=== PATIENT | male | born 1965 | race Caucasian/White ===

== ENCOUNTER 2019-03-07 03:34 | Inpatient (IN) | payer BC, OTHER ==
--- NOTE | 2019-03-07 04:16 | PDOC ---
History of Present Illness - General Stated Complaint: ABD PAIN - History of Present Illness Initial Comments: Nikhil Casas is a 54yo man with a PMH of pancreatitis, former alcohol abuse , current smoking (1/2 PPD from 2 PPD previously) who presents with over one month of productive cough, 6 months of intermittent left-sided abdominal pain, and chronic diarrhea. He reports that he has also lost about 50lb over the past 6 months. Mr Casas states that he has had intermittent abdominal pain since he was diagnosed with pancreatitis several years ago; he has always attributed the pain to pancreatitis. He says that the pain is usually in the mid left abdomen, and it is most severe at the end of the day, especially if he is doing physical work. Overnight, the pain was so severe that he was "doubled over" and his convinced him to come for evaluation. The pain has since resolved, but he states that it always comes and goes. In addition, he notes watery diarrhea with an oily surface that he has had freqnetly over the past 6 months. During the same time period, he has lost a significant amount of weight despite increasing his PO intake significantly. He reports that he has been trying to gain weight but continues to loose more. Finally, he has had a cough for the past month along with nasal congestion. He has cut down markedly on his smoking, but he does continue to smoke. He has never had a similar cough in the past, and he has never seen a hook puller. He does not currently have a PMD and has not had a medical evaluation in several years. He denies any fever/chills, nausea/vomiting, night sweats, recent travel, sick contacts, exposure to prisons or homeless shelters, or other exposures. Past History - Past Medical History Allergies/Adverse Reactions: Allergies Allergy/AdvReac Type Severity Reaction Status Date / Time neomycin Allergy Verified 03/29/14 15:14 Home Medications: Ambulatory Orders Bupropion HCl [Zyban] 150 mg PO DAILY 03/29/14 Thiamine HCl [Vitamin B-1] 100 mg PO DAILY 03/29/14 Asthma: Yes COPD: No - Immunization History Immunization Up to Date: Yes - Psycho Social/Smoking Cessation Hx Smoking History: Current every day smoker Have you smoked in the past 12 months: Yes Number of Cigarettes Smoked Daily: 10 Information on smoking cessation initiated: Yes Hx Alcohol Use: Yes (1L/ day ) Drug/Substance Use Hx: No Substance Use Type: None Hx Substance Use Treatment: No Review of Systems - Review of Systems Comments:: General: No fevers, no chills, +rapid weight loss, no malaise HEENT: No changes in vision, no changes in hearing, no congestion, no sore throat CV: No chest pain, no palpitations, no LE edema Pulm: No SOB, + cough, no wheezing GI: No nausea or vomiting, +frequent watery diarrhea, +left-sided abdominal pain : No frequency, no urgency, no dysuria Musc: No back pain, no joint swelling, no recent injury Skin: No rash, no lesions, no erythema Endo: No excessive thirst, no heat/cold intolerance Heme: No unusual bruising or bleeding, no swollen glands Neuro: No syncope, no numbness/tingling, no focal weakness Vasc: No claudication Psych: No recent change in mood, no SI or HI *Physical Exam - Vital Signs Last Vital Signs Temp Pulse Resp BP Pulse Ox 98 F 103 H 18 126/68 98 03/07/19 03:55 03/07/19 03:55 03/07/19 03:55 03/07/19 03:55 03/07/19 03:55 - Physical Exam General: Comfortable, no acute distress. Very thin, clothing oversized HEENT: Atraumatic, PERRL, EOMI, MMM, voice normal, normal neck ROM Cards: RRR, no murmur appreciated Pulm: Comfortable on room air, clear to auscultation bilaterally. Frequent dry cough Abd: Soft, nontender, nondistended. Rt inguinal hernia, easily reducible Ext: Atraumatic. No LE edema. ROM intact. WWP Skin: Normal color, no rashes or lesions Neuro: A&Ox3, CN grossly intact, normal speech, motor/sensory grossly intact and symmetric Psych: Mood appropriate to situation ED Treatment Course - LABORATORY CBC & Chemistry Diagram: 03/07/19 04:50 03/07/19 04:50 Medical Decision Making - Medical Decision Making 03/07/19 04:16 Nikhil Casas is a 54yo man with a PMH of pancreatitis, former alcohol abuse , current smoking (1/2 PPD from 2 PPD previously) who presents with over one month of productive cough, 6 months of intermittent left-sided abdominal pain, and chronic oily diarrhea. He also reports loss of 50lb over the past 6 months despite trying to gain weight. He has not had fevers, night sweats, recent travel, sick contacts, or concerning exposures. - Concerning for underlying chronic pulmonary or abdominal disease, possibly lung or pancreatic cancer, causing multiple symptoms, weight loss, pain, cough. - CBC, CMP, lipase, lactate, UA, UCx - CXR, may need CT chest - CT abd/pelvis with PO and IV contrast for evaluation 03/07/19 06:52 - Labs notable for glucose 669, lactate 2.8. 10u insulin and IVF ordered. Also notable for alk phos elevated to 238, mild hyponatremia at 130 - UA with 3+ glucose - CXR without focal abnormalities - CT abd/pelvis with IV and oral contrast ordered for evaluation 03/07/19 07:37 - Patient signed out to Dr Gracia for the remainder of his ED care. Discussed with Dr Ami Franks PGY2 Discharge - Discharge Information Problems reviewed: Yes Clinical Impression/Diagnosis: Weight loss, unintentional, Chronic cough Chronic pancreatitis Qualifiers: Pancreatitis type: other Qualified Code(s): K86.1 - Other chronic pancreatitis - Follow up/Referral - Patient Discharge Instructions - Post Discharge Activity
--- NOTE | 2019-03-07 04:56 | PDOC ---
Attending Attestation - Resident Resident Name: Keren Franks - ED Attending Attestation I have performed the following: I have examined & evaluated the patient, The case was reviewed & discussed with the resident, I agree w/resident's findings & plan - HPI HPI: 03/07/19 07:20 Nikhil Casas is a 54yo man with a PMH of pancreatitis, former alcohol abuse , current smoking (1/2 PPD from 2 PPD previously) who presents with over one month of productive cough, 6 months of intermittent left-sided abdominal pain, associated with almost 50lb weight loss during this time. - Physicial Exam PE: 03/07/19 04:51 Agree with the resident's HPI and PE as documented in the electronic medical record. cachectic appearing, very thin, yazidism wasting. NCAT. EOMI, PERRL, nl conjunctiva, anicteric; neck supple. lungs clear, RRR, abdomen soft + lower quadrant tenderness, worse in RLQ>LLQ. no rebound, guarding. Back nontender. DALE x4, no focal neuro deficits. No peripheral edema. normal color for ethnicity , WWP. 03/07/19 07:20 - Medical Decision Making 03/07/19 04:53 Vital Signs Temp Pulse Resp BP Pulse Ox 98 F 103 H 18 126/68 98 03/07/19 03:55 03/07/19 03:55 03/07/19 03:55 03/07/19 03:55 03/07/19 03:55 ddx, malignancy, anemia, infection, pancreatitis, hepatitis, renal colic, cholecystitis, biliary colic, mass vitals with mild tachy likely from dehydration/pain. basic labs and lytes hyperglycemia noted 660s, pt does not have documented diabetic, has not seen PMD will treat with IVF and insulin recheck bgm. no e/o dka, no anion gap, so doubt acidotic. no ketones on urinalysis lactic elevated, likely from poor nutrition/weight loss. trop neg, reassuring; doubt cardiac, CT a/p to eval for mass/obstruction, inflammation/infection possible malignancy with significant weight loss and cough, no primary care, now with abdominal pain. s/o pending CT imaging, ultimate dispo, reeval s/o dr carrillo at 7AM 03/07/19 07:21 Heart Score/ECG Review #1 ECG reviewed & interpreted by me at: 04:35 General ECG Interpretation: Sinus Rhythm, Normal Rate, Normal Intervals 03/07/19 04:54 EKG normal sinus rhythm 91 bpm, no interval abnormalities, narrow QRS, ST and T wave segments and morphology normal.
[2019-03-07 05:09] LABS: BASO % 0.7 % (0-2.0); EOS % 0.6 % (0-4.5); HEMATOCRIT 36.8 % (35.4-49); HEMOGLOBIN 12.8 GM/dL (11.7-16.9); LYMPH % 27.2 % (8-40); MCH 34.6 pg (25.7-33.7); MCHC 34.8 g/dl (32.0-35.9); MEAN CELL VOLUME 99.3 fl (80-96); MEAN PLT VOLUME 7.3 fl (7.5-11.1); MONO % 8.7 % (3.8-10.2); NEUT % 62.8 % (42.8-82.8); PLATELET COUNT 207 K/MM3 (134-434); RDW 13.3 % (11.9-15.9); WHITE BLOOD COUNT 6.1 K/mm3 (4.0-10.0)
[2019-03-07 05:15] LABS: PH,URINE 5.5 (5.0-8.0); URINE APPEARANCE CLEAR; URINE BILIRUBIN NEGATIVE (NEGATIVE); URINE COLOR YELLOW; URINE GLUCOSE (UA) 3+ (NEGATIVE); URINE KETONE NEGATIVE (NEGATIVE); URINE LEUK ESTERASE NEGATIVE (NEGATIVE); URINE NITRITE NEGATIVE (NEGATIVE); URINE PROTEIN NEGATIVE (NEGATIVE); URINE UROBILINOGEN 0.2 mg/dL (0.2-1.0)
[2019-03-07 05:47] LABS: ALBUMIN 3.3 g/dl (3.4-5.0); BILIRUBIN,TOTAL 0.5 mg/dL (0.2-1); BLOOD UREA NITROGEN 19.6 mg/dL (7-18); CALCIUM 8.6 mg/dL (8.5-10.1); POTASSIUM 3.8 mmol/L (3.5-5.1); TOT PROT 6.6 g/dl (6.4-8.2)
[2019-03-07] MEDS ORDERED: INSULIN REGULAR HUMAN 100 UNITS/ML *VIAL SQ ONE (05:50)
[2019-03-07] MEDS ORDERED: SODIUM CHLORIDE 1,000 ML IV STA (05:51)
[2019-03-07] MEDS ORDERED: INSULIN REGULAR HUMAN 100 UNITS/ML *VIAL ONE ×2 (07:17→08:50)
--- NOTE | 2019-03-07 07:17 | PDOC ---
*Physical Exam - Vital Signs Last Vital Signs Temp Pulse Resp BP Pulse Ox 98 F 103 H 18 126/68 98 03/07/19 03:55 03/07/19 03:55 03/07/19 03:55 03/07/19 03:55 03/07/19 03:55 ED Treatment Course - LABORATORY CBC & Chemistry Diagram: 03/07/19 04:50 03/07/19 04:50 - ADDITIONAL ORDERS Additional order review: Laboratory Results 03/07/19 03/07/19 03/07/19 04:50 04:50 04:50 Sodium Potassium Chloride Carbon Dioxide Anion Gap BUN Creatinine Est GFR (CKD-EPI)AfAm Est GFR (CKD-EPI)NonAf Random Glucose Lactic Acid Calcium Magnesium 1.8 Total Bilirubin AST ALT Alkaline Phosphatase Creatine Kinase 79 Troponin I < 0.02 Total Protein Albumin Lipase Urine Color Yellow Urine Appearance Clear Urine pH 5.5 Ur Specific [place] 1.034 Urine Protein Negative Urine Glucose (UA) 3+ H Urine Ketones Negative Urine Blood Negative Urine Nitrite Negative Urine Bilirubin Negative Urine Urobilinogen 0.2 Ur Leukocyte Esterase Negative 03/07/19 03/07/19 03/07/19 04:50 04:50 04:50 Sodium 130 L Potassium 3.8 Chloride 95 L Carbon Dioxide 22 Anion Gap 13 BUN 19.6 H Creatinine 1.0 Est GFR (CKD-EPI)AfAm 99.85 Est GFR (CKD-EPI)NonAf 86.15 Random Glucose 669 H* Lactic Acid 2.8 H* Calcium 8.6 Magnesium Total Bilirubin 0.5 AST 38 H ALT 56 Alkaline Phosphatase 238 H Creatine Kinase Troponin I Total Protein 6.6 Albumin 3.3 L Lipase 53 L Urine Color Urine Appearance Urine pH Ur Specific [place] Urine Protein Urine Glucose (UA) Urine Ketones Urine Blood Urine Nitrite Urine Bilirubin Urine Urobilinogen Ur Leukocyte Esterase 03/07/19 04:50 RBC 3.70 L MCV 99.3 H MCHC 34.8 RDW 13.3 MPV 7.3 L D Neutrophils % 62.8 Lymphocytes % 27.2 Monocytes % 8.7 Eosinophils % 0.6 Basophils % 0.7 Medical Decision Making - Medical Decision Making Patient signed out by Dr. Franks 54yo man with a PMH of pancreatitis, former alcohol abuse, current smoking (1/2 PPD from 2 PPD previously) who presents with over one month of productive cough , 6 months of intermittent left-sided abdominal pain, and significant weight loss. Glc 669 Lactate 2.8 Pending CTAP with IV and po contrast 03/07/19 07:16 CTAP as read by radiology: " EXAM#: TYPE/EXAM: RESULT: [id number] CT/ABDOMEN PELVIS CT WITH CONTR Abdomen and pelvis CT with intravenous and oral contrast Clinical information: chronic abdominal pain, history of pancreatitis multiplanar imaging was performed utilizing intravenous and oral contrast. Standard portal venous phase imaging was obtained. No evidence of pneumoperitoneum, abscess, free intraperitoneal fluid or bowel obstruction. In comparison to a prior CT exam of 03/29/2014 note is made of increased multiple pancreatic calcifications diffusely consistent with chronic calcific pancreatitis. Diffuse pancreatic atrophy is again noted. Interval development of dilatation of the main pancreatic duct is seen within the body and tail with a 0.8 cm diameter. There are probable intraductal calculi may which account for the described ductal dilatation. Interval resolution of minimal to mild peripancreatic soft tissue stranding is seen adjacent to the tail which may be on the basis of superimposed acute pancreatitis at that time. Note is also made of interval resolution of a 6.2 cm pancreatic tail pseudocyst. No gross pancreatic mass lesion is identified. Interval resolution of a short segment wall dilatation is noted which had involved several proximal jejunal bowel loops. Diffuse fatty infiltration of liver is seen which appears improved. There is no longer visualization of a 3 mm nonobstructing left renal calculus which may be on the basis of interval passage. Correlate with medical history. There is no definite CT evidence of current urolithiasis. Interval decreased intra-abdominal and subcutaneous fat is noted diffusely. There is currently a marked paucity of intra-abdominal and subcutaneous fat. The spleen, gallbladder, adrenal glands and kidneys demonstrate no discrete pathology. There is no aortic aneurysm. No obvious lymphadenopathy is seen. At least moderate atherosclerotic aortoiliac wall calcifications are noted. The appendix is not definitely visualized. No obvious indirect CT signs of acute appendicitis are noted. Evaluation this regard is limited due to a paucity of abdominal fat and contiguous bowel loops. There is no definite CT evidence of acute diverticulitis. No gross small bowel pathology is identified. Diffuse colonic fecal retention is noted which is probably moderate to marked. Mild prostate enlargement. The urinary bladder demonstrates no obvious intrinsic or extrinsic CT abnormality. Moderate to marked left L5-S1 degenerative facet arthropathy. IMPRESSION: No definite CT findings of acute pathology are identified. Chronic calcific pancreatitis is noted. The degree of pancreatic calcification has increased in comparison to a CT exam of 03/29/2014. Interval development of dilatation of the main pancreatic duct is seen within the body and tail with a 0.8 cm diameter. There is no obvious CT evidence of superimposed acute pancreatitis. Evaluation in this regard is somewhat limited due to a paucity of retroperitoneal fat. Interval resolution of a 6.2 cm pancreatic tail pseudocyst is noted. There is no longer visualization of a 3 mm nonobstructing left renal calculus which may be due to interval passage. Currently there is a marked paucity of intra-abdominal and subcutaneous fat which has developed since the previous study. Diffuse hepatic steatosis is seen which has decreased since the previous exam. At least moderate atherosclerotic vascular calcifications are seen. Diffuse colonic fecal retention is noted which is probably moderate to marked. Reported By: Bryson Cuevas MD 03/07/19 0905 " 03/07/19 09:[address] Orantes who accepted patient for med/surg admission under himself 03/07/19 10:00 Discharge - Discharge Information Problems reviewed: Yes Clinical Impression/Diagnosis: Weight loss, unintentional, Chronic cough, Pancreatic duct dilated, Hyperglycemia Chronic pancreatitis Qualifiers: Pancreatitis type: other Qualified Code(s): K86.1 - Other chronic pancreatitis Condition: Guarded - Admission Yes - Follow up/Referral - Patient Discharge Instructions - Post Discharge Activity
[2019-03-07] MEDS ORDERED: INSULIN REGULAR HUMAN 100 UNITS/ML *VIAL IVPUSH ONE (08:48)
[2019-03-07] MEDS: SODIUM CHLORIDE 1,000 ML IV SCH ×2 (10:32→22:29)
--- NOTE | 2019-03-07 10:53 | HP ---
CHIEF COMPLAINT: Weight loss and high sugar PCP: He has not seen a doctor over 10 years HISTORY OF PRESENT ILLNESS: Nikhil Casas is a 54yo man with a PMH of pancreatitis, former alcohol abuse , current smoking (1/2 PPD from 2 PPD previously) who presents with over one month of productive cough, 6 months of intermittent left-sided abdominal pain, and chronic oily diarrhea. He also reports loss of 50lb over the past 6 months despite trying to gain weight. He has not had fevers, night sweats, recent travel, sick contacts, or concerning exposures. In the ER he was found to have sugar of over 600 and he does not know about it. He has been complaining of polyuria polydipsia he is eating a lot of fluids and food but still unable to gain any weight rather he is losing weight. It is going on for last few months. He has a history of chronic alcoholism and history of pancreatitis in the past but he is okay right now he is not drinking anymore. No nausea vomiting or anything else. In the emergency room his sugar was 650 he was given IV fluids and insulin IV and sugar has come down to 400. He is still very thirsty but not any fever or chills. ER course was notable for: (1) weight loss over 50 pounds (2) history of alcoholism (3) history of chronic smoking Recent Travel: No history of traveling PAST MEDICAL HISTORY: History of chronic alcohol abuse also history of positive PPD and history of pancreatitis in the past PAST SURGICAL HISTORY: Social History: Smoking: Smoker Alcohol: Former alcoholic Drugs: No history of drug use Allergies neomycin Allergy (Verified 03/29/14 15:14) HOME MEDICATIONS: Home Medications Medication Instructions Recorded Bupropion HCl [Zyban] 150 mg PO DAILY 03/29/14 Thiamine HCl [Vitamin B-1] 100 mg PO DAILY 03/29/14 REVIEW OF SYSTEMS CONSTITUTIONAL: Absent: fever, chills, diaphoresis, generalized weakness, malaise, loss of appetite, positive weight loss HEENT: Absent: rhinorrhea, nasal congestion, throat pain, throat swelling, difficulty swallowing, mouth swelling, ear pain, eye pain, visual changes CARDIOVASCULAR: Absent: chest pain, syncope, palpitations, irregular heart rate, lightheadedness , peripheral edema RESPIRATORY: Absent: cough, shortness of breath, dyspnea with exertion, orthopnea, wheezing, stridor, hemoptysis GASTROINTESTINAL: Absent: abdominal pain, abdominal distension, nausea, vomiting, diarrhea, constipation, melena, hematochezia GENITOURINARY: Absent: dysuria, frequency, urgency, hesitancy, hematuria, flank pain, genital pain MUSCULOSKELETAL: Absent: myalgia, arthralgia, joint swelling, back pain, neck pain SKIN: Absent: rash, itching, pallor HEMATOLOGIC/IMMUNOLOGIC: Absent: easy bleeding, easy bruising, lymphadenopathy, frequent infections ENDOCRINE: Absent: unexplained weight gain, unexplained weight loss, heat intolerance, cold intolerance NEUROLOGIC: Absent: headache, focal weakness or paresthesias, dizziness, unsteady gait, seizure, mental status changes, bladder or bowel incontinence PSYCHIATRIC: Absent: anxiety, depression, suicidal or homicidal ideation, hallucinations. PHYSICAL EXAMINATION Vital Signs - 24 hr 03/07/19 03/07/19 03/07/19 03:55 07:32 07:33 Temperature 98 F 98.4 F Pulse Rate 103 H Pulse Rate [ 94 H Apical] Respiratory 18 18 Rate Blood Pressure 126/68 Blood Pressure 115/69 [Right Arm] O2 Sat by Pulse 98 100 100 Oximetry (%) GENERAL: Awake, alert, and fully oriented, in no acute distress. HEAD: Normal with no signs of trauma. EYES: Pupils equal, round and reactive to light, extraocular movements intact, sclera anicteric, conjunctiva clear. No lid lag. EARS, NOSE, THROAT: Ears normal, nares patent, oropharynx clear without exudates. Moist mucous membranes. NECK: Normal range of motion, supple without lymphadenopathy, JVD, or masses. LUNGS: Breath sounds equal, clear to auscultation bilaterally. No wheezes, and no crackles. No accessory muscle use. HEART: Regular rate and rhythm, normal S1 and S2 without murmur, rub or gallop. ABDOMEN: Soft, nontender, not distended, normoactive bowel sounds, no guarding, no rebound, no masses. No hepatomegaly or splenomegaly. MUSCULOSKELETAL: Normal range of motion at all joints. No bony deformities or tenderness. No CVA tenderness. UPPER EXTREMITIES: 2+ pulses, warm, well-perfused. No cyanosis. No clubbing. No peripheral edema. LOWER EXTREMITIES: 2+ pulses, warm, well-perfused. No calf tenderness. No peripheral edema. NEUROLOGICAL: Cranial nerves II-XII intact. Normal speech. Normal gait. PSYCHIATRIC: Cooperative. Good eye contact. Appropriate mood and affect. SKIN: Warm, dry, normal turgor, no rashes or lesions noted, normal capillary refill. Laboratory Results - last 24 hr 03/07/19 03/07/19 03/07/19 04:50 04:50 04:50 WBC 6.1 RBC 3.70 L Hgb 12.8 Hct 36.8 D MCV 99.3 H MCH 34.6 H D MCHC 34.8 RDW 13.3 Plt Count 207 D MPV 7.3 L D Absolute Neuts (auto) 3.8 Neutrophils % 62.8 Lymphocytes % 27.2 Monocytes % 8.7 Eosinophils % 0.6 Basophils % 0.7 Nucleated RBC % 0 Sodium 130 L Potassium 3.8 Chloride 95 L Carbon Dioxide 22 Anion Gap 13 BUN 19.6 H Creatinine 1.0 Est GFR (CKD-EPI)AfAm 99.85 Est GFR (CKD-EPI)NonAf 86.15 POC Glucometer Random Glucose 669 H* Lactic Acid 2.8 H* Calcium 8.6 Magnesium Total Bilirubin 0.5 AST 38 H ALT 56 Alkaline Phosphatase 238 H Creatine Kinase Troponin I Total Protein 6.6 Albumin 3.3 L Lipase Urine Color Urine Appearance Urine pH Ur Specific [place] Urine Protein Urine Glucose (UA) Urine Ketones Urine Blood Urine Nitrite Urine Bilirubin Urine Urobilinogen Ur Leukocyte Esterase 03/07/19 03/07/19 03/07/19 04:50 04:50 04:50 WBC RBC Hgb Hct MCV MCH MCHC RDW Plt Count MPV Absolute Neuts (auto) Neutrophils % Lymphocytes % Monocytes % Eosinophils % Basophils % Nucleated RBC % Sodium Potassium Chloride Carbon Dioxide Anion Gap BUN Creatinine Est GFR (CKD-EPI)AfAm Est GFR (CKD-EPI)NonAf POC Glucometer Random Glucose Lactic Acid Calcium Magnesium 1.8 Total Bilirubin AST ALT Alkaline Phosphatase Creatine Kinase Troponin I Total Protein Albumin Lipase 53 L Urine Color Yellow Urine Appearance Clear Urine pH 5.5 Ur Specific [place] 1.034 Urine Protein Negative Urine Glucose (UA) 3+ H Urine Ketones Negative Urine Blood Negative Urine Nitrite Negative Urine Bilirubin Negative Urine Urobilinogen 0.2 Ur Leukocyte Esterase Negative 03/07/19 03/07/19 04:50 08:45 WBC RBC Hgb Hct MCV MCH MCHC RDW Plt Count MPV Absolute Neuts (auto) Neutrophils % Lymphocytes % Monocytes % Eosinophils % Basophils % Nucleated RBC % Sodium Potassium Chloride Carbon Dioxide Anion Gap BUN Creatinine Est GFR (CKD-EPI)AfAm Est GFR (CKD-EPI)NonAf POC Glucometer 405 Random Glucose Lactic Acid Calcium Magnesium Total Bilirubin AST ALT Alkaline Phosphatase Creatine Kinase 79 Troponin I < 0.02 Total Protein Albumin Lipase Urine Color Urine Appearance Urine pH Ur Specific [place] Urine Protein Urine Glucose (UA) Urine Ketones Urine Blood Urine Nitrite Urine Bilirubin Urine Urobilinogen Ur Leukocyte Esterase ASSESSMENT/PLAN: Nikhil Casas is a 54yo man with a PMH of pancreatitis, former alcohol abuse , current smoking (1/2 PPD from 2 PPD previously) who presents with over one month of productive cough, 6 months of intermittent left-sided abdominal pain, and chronic oily diarrhea. He also reports loss of 50lb over the past 6 months despite trying to gain weight. He has not had fevers, night sweats, recent travel, sick contacts, or concerning exposures. Problem 1 is weight loss probably due to hyperglycemia uncontrolled diabetes. Start IV fluid normal saline at 200 cc an hour start him on insulin coverage every 4 hourly Start him on diabetic diet Discussed in detail about the diabetes disease process explained to him diet low sugar also requested dietary evaluation in the hospital. Problem #2 weight loss rule out problem due to pancreatic issue Patient had a CAT scan done in the hospital with IV and p.o. contrast which showed no sign of any tumor or pancreatic mass but just dilated bile duct of 0.8 cm. No pancreatic mass or any other GI abnormality noted. Will order abdominal ultrasound because his alkaline phosphatase is 250. He has no sign of infection at this time so no need for antibiotic Patient is ambulatory so there is no need for any injectable form of DVT prophylaxis. Problem List - Problem (1) Chronic pancreatitis Code(s): K86.1 - OTHER CHRONIC PANCREATITIS Qualifiers: Pancreatitis type: other Qualified Code(s): K86.1 - Other chronic pancreatitis (2) Hyperglycemia Code(s): R73.9 - HYPERGLYCEMIA, UNSPECIFIED (3) Pancreatic duct dilated Code(s): K86.89 - OTHER SPECIFIED DISEASES OF PANCREAS (4) Weight loss, unintentional Code(s): R63.4 - ABNORMAL WEIGHT LOSS (5) Chronic alcoholism Code(s): F10.20 - ALCOHOL DEPENDENCE, UNCOMPLICATED
[2019-03-07] MEDS: INSULIN SLIDING SCALE (NOVOLOG) 1 VIAL SQ SCH ×3 (11:25→21:15)
[2019-03-07] MEDS ORDERED: PNEUMOC 13-VAL CONJ-DIP CRM/PF 0.5 ML DISP.SYRIN IM ONE (12:07)
[2019-03-07] MEDS ORDERED: PNEUMOCOCCAL 23 VACCINE 0.5 ML VIAL IM ONE (17:00)
[2019-03-07] MEDS ORDERED: FLU VACCINE QUAD 60 MCG/0.5 ML (MDV 19-20) IM ONE (17:00)
--- NOTE | 2019-03-07 17:33 | EKG ---
Test Reason : Blood Pressure : / mmHG Vent. Rate : 091 BPM Atrial Rate : 091 BPM P-R Int : 142 ms QRS Dur : 090 ms QT Int : 364 ms P-R-T Axes : 072 072 066 degrees QTc Int : 447 ms NORMAL SINUS RHYTHM NORMAL ECG WHEN COMPARED WITH ECG OF 29-MAR-2014 05:51, NONSPECIFIC T WAVE ABNORMALITY NO LONGER EVIDENT IN INFERIOR LEADS NONSPECIFIC T WAVE ABNORMALITY NO LONGER EVIDENT IN ANTEROLATERAL LEADS CLINICAL CORRELATION IS RECOMMENDED Confirmed by ONESIMO FERNANDEZ MD ([id number]) on 03/07/2019 5:33:29 PM Referred By: Confirmed By:ONESIMO FERNANDEZ MD
--- NOTE | 2019-03-07 17:49 | CON.GI ---
Consult Consult Specialty:: GI Referred by:: Hospitalist Service Reason for Consultation:: Pancreatitis - History of Present Illness Chief Complaint: Chest pain and abdominal pain History of Present Illness: 54M admitted for evaluation of chest pain and abdominal pain. The abdominal pain started 1 week ago and was intermittent. His abdominal pain has resolved and he apparently tolerated breakfast and lunch without postprandial pain. He is an alcoholic. He states that he quit drinking, however, had a few drinks last night. Prior to that he states that he drank on Srikanth. He denies vomiting, diarrhea, rectal bleeding. He has no medical care. His blood glucose on admission was 669. He does not carry a diagnosis of diabetes. He is an active smoker and has been smoking 1 PPD since age 16. He describes significant weight loss over the last few months. There is no family history of colorectal cancer or other GI malignancy. He has never had a colonoscopy or upper endoscopy. CT scan on admission reveals chronic calcific pancreatitis with dilated pancreatic duct to 8mm. Transaminases and ALP were elevated on admission. It appears as though ALP was elevated in 2014 as well. hepatitis serologies were unrevealing at that time aside from a + hepatitis A IgG. there is no family or personal history of liver disease. - History Source History Provided By: Patient, Medical Record - Past Medical History Gastrointestinal: Yes: Pancreatitis (chronic calcific pancreatitis) Psych: Yes: Addictions (Alcoholism) - Past Surgical History Additional Surgical History: Denies - Alcohol/Substance Use Hx Alcohol Use: Yes (previously 1L/ day, now drinks intermittently per patient ) History of Substance Use: reports: Cocaine (as a teen), Marijuana (as a teen) - Smoking History Smoking history: Current every day smoker (1 PPD) Have you smoked in the past 12 months: Yes Aproximately how many cigarettes per day: 20 - Social History Usual Living Arrangement: With Spouse ADL: Independent Occupation: [employer] Place of : [facility] History of Recent Travel: No Home Medications - Allergies Allergies/Adverse Reactions: Allergies Allergy/AdvReac Type Severity Reaction Status Date / Time neomycin Allergy Verified 03/29/14 15:14 - Home Medications Home Medications: Ambulatory Orders Bupropion HCl [Zyban] 150 mg PO DAILY 03/29/14 Thiamine HCl [Vitamin B-1] 100 mg PO DAILY 03/29/14 Family Medical History Family Hx Cancer: Mother ("skin cancer") Other Family History: Father: alive: healthy. 6 12 siblings: healthy. 1 son: healthy. No family history of colorectal cancer or other GI malignancy Review of Systems - Review of Systems Cardiovascular: reports: Chest Pain Respiratory: reports: Cough Gastrointestinal: reports: Abdominal Pain (resolved), Nausea. denies: Bloating , Diarrhea, Rectal Bleeding Physical Exam-GI Vital Signs: Vital Signs Temperature 98.6 F 03/07/19 17:17 Pulse Rate 66 03/07/19 17:17 Respiratory Rate 18 03/07/19 17:17 Blood Pressure 142/85 03/07/19 17:17 O2 Sat by Pulse Oximetry (%) 97 03/07/19 14:44 Constitutional: Yes: Calm Eyes: No: Sclera Icterus Cardiovascular: Yes: Regular Rate and Rhythm. No: Murmur Respiratory: Yes: CTA Bilaterally Gastrointestinal Inspection: No: Distention ...Auscultate: Yes: Normoactive Bowel Sounds ...Palpate: Yes: Soft. No: Hepatomegaly, Splenomegaly, Tenderness ...Percussion: No: Tympanitic Edema: No (No LE edema) Neurological: Yes: Alert Labs: CBC, BMP 03/07/19 04:50 03/07/19 04:50 Hepatic Panel Total Bilirubin 0.5 mg/dL (0.2-1) 03/07/19 04:50 AST 38 U/L (15-37) H 03/07/19 04:50 ALT 56 U/L (13-61) 03/07/19 04:50 Alkaline Phosphatase 238 U/L (45-117) H 03/07/19 04:50 Albumin 3.3 g/dl (3.4-5.0) L 03/07/19 04:50 Problem List - Problems (1) Chronic pancreatitis Assessment/Plan: Chronic calcific pancreatitis in sertting of continued ETOH use (despite his description of intermittent alcohol use, he is still drinking) and + tobacco use. Tolerating meals without pancreatic enzyme supplementation advise: Glycemic control. Uncontrolled and undiagnosed DM II likely contributing to his weight loss. Complete alcohol cessation and smoking cessation. explained that both are causative of his pancreatic disease If post prandial pain with meals, begin pancrealipase 2 pills prior to meals and protonix 40mg once daily Lung cancer screening per PMD Ordered MRI of the abdomen with and without contrast with MRCP Screening hepatitis serologies ordered Follow-up with a pancreaticobiliary specialist for follow-up of his chronic calcific pancreatitis ([facility], Dr. Michael Banegas [phone]) Can follow-up in office to discuss screening colonoscopy Code(s): K86.1 - OTHER CHRONIC PANCREATITIS Qualifiers: Pancreatitis type: other Qualified Code(s): K86.1 - Other chronic pancreatitis
[2019-03-07] MEDS ORDERED: PT OWN MED DRAWER 7, Y5N ONE (18:58)
[2019-03-07] MEDS: NICOTINE 21 MG/24 HOURS TOPICAL PATCH TD SCH (19:00)
[2019-03-07 19:30] LABS: BLOOD UREA NITROGEN 13.2 mg/dL (7-18); CALCIUM 8.5 mg/dL (8.5-10.1); CREATININE 0.8 mg/dL (0.55-1.3); POTASSIUM 3.4 mmol/L (3.5-5.1)
[2019-03-08] MEDS: INSULIN SLIDING SCALE (NOVOLOG) 1 VIAL SQ SCH ×4 (07:34→21:32)
[2019-03-08 07:55] LABS: BASO % 0.4 % (0-2.0); EOS % 1.3 % (0-4.5); HEMATOCRIT 32.5 % (35.4-49); HEMOGLOBIN 11.8 GM/dL (11.7-16.9); LYMPH % 10.4 % (8-40); MCH 35.1 pg (25.7-33.7); MCHC 36.2 g/dl (32.0-35.9); MEAN PLT VOLUME 6.9 fl (7.5-11.1); NEUT % 79.9 % (42.8-82.8); PLATELET COUNT 174 K/MM3 (134-434); RBC 3.36 M/mm3 (4.00-5.60); RDW 13.4 % (11.9-15.9); WHITE BLOOD COUNT 5.7 K/mm3 (4.0-10.0)
[2019-03-08 08:40] LABS: BLOOD UREA NITROGEN 10.7 mg/dL (7-18); CALCIUM 8.2 mg/dL (8.5-10.1); CREATININE 0.6 mg/dL (0.55-1.3); POTASSIUM 3.4 mmol/L (3.5-5.1)
[2019-03-08] MEDS: NICOTINE 21 MG/24 HOURS TOPICAL PATCH TD SCH (09:05)
[2019-03-08] MEDS ORDERED: POTASSIUM CHLORIDE TABS 20 MEQ TABLET.ER (FP) PO ONE (09:15)
[2019-03-08] MEDS ORDERED: diazePAM 5 MG TABLET PO ONE (10:15)
[2019-03-08] MEDS: SODIUM CHLORIDE 1,000 ML IV SCH ×2 (10:21→20:17)
[2019-03-08 11:07] VITALS: BMI 17.0
--- NOTE | 2019-03-08 14:06 | PN ---
Teaching Attending Note Name of Resident: Philly Acevedo ATTENDING PHYSICIAN STATEMENT I saw and evaluated the patient. I reviewed the resident's note and discussed the case with the resident. I agree with the resident's findings and plan as documented. SUBJECTIVE: Feels improved able to tolerate p.o. OBJECTIVE: Vital Signs Temperature 98.3 F 03/08/19 10:00 Pulse Rate 81 03/08/19 10:00 Respiratory Rate 20 03/08/19 10:00 Blood Pressure 125/83 03/08/19 10:00 O2 Sat by Pulse Oximetry (%) 97 03/07/19 14:44 General: Young male, comfortable, not in distress HEENT; mucous membranes moist, no anemia, no jaundice, PERRLA, no nystagmus Neck: No JVD, supple, no bruit, thyroid palpably normal, normal carotid pulsations. Chest: Nontender, clear to auscultation CVS: S1-S2 regular no murmur/gallop/rub Abdomen: Nondistended, soft, bowel sounds present. Extremities: No edema., No cough tenderness, pulses present FINAL OPERATIONS TECHNICIAN: AO X3 , no gross motor sensory deficit CBC, BMP 03/08/19 07:10 03/08/19 07:10 Active Medications Sodium Chloride (Normal Saline -) 1,000 mls @ 200 mls/hr IV ASDIR [facility] Last Admin: 03/08/19 10:21 Dose: 200 mls/hr Insulin Aspart (Novolog Vial Sliding Scale -) 1 vial SQ ACHS [facility]; Protocol Last Admin: 03/08/19 10:46 Dose: 6 units Insulin Detemir (Levemir Vial) 6 units SQ HS [facility] Nicotine (Nicoderm Patch -) 21 mg TD DAILY [facility] Last Admin: 03/08/19 09:05 Dose: 21 mg ASSESSMENT AND PLAN: 54 years old man history of alcohol abuse, presented with new onset diabetes mellitus with unintentional weight loss and chronic diarrhea , CT abdomen shows pancreatic duct dilatation and pancreatic atrophy suggestive of chronic pancreatic insufficiency. 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 Problem List - Problems (1) Weight loss, unintentional Assessment/Plan: Most likely due to pancreatic insufficiency both endocrine and exocrine with new onset diabetes, glycemic control will increase basal insulin to 10 units with correction dose NovoLog, and exocrine pancreatic replacement, follow-up with fecal fat. Problems reviewed: Yes Code(s): R63.4 - ABNORMAL WEIGHT LOSS (2) New onset type 2 diabetes mellitus Assessment/Plan: Hyperglycemia is improving continue basal bolus Problems reviewed: Yes Code(s): E11.9 - TYPE 2 DIABETES MELLITUS WITHOUT COMPLICATIONS (3) Pancreatic duct dilated Assessment/Plan: Can be due to chronic pancreatitis we will follow-up MRCP, follow-up GI recommendations. Problems reviewed: Yes Code(s): K86.89 - OTHER SPECIFIED DISEASES OF PANCREAS (4) Hypokalemia Assessment/Plan: Repleted Problems reviewed: Yes Code(s): E87.6 - HYPOKALEMIA
--- NOTE | 2019-03-08 14:24 | PN ---
Progress Note (short form) - Note Progress Note: Hospitalist Medicine Without complaint. States he is feeling better. Tolerating PO Vitals 03/08/19 10:00 Temperature 98.3 F Pulse Rate 81 Respiratory 20 Rate Blood Pressure 125/83 physical exam general: resting in bed, in NAD. thin HEENT: NCAT, PERRLA, moist mucous membraes neck: supple cardio: S1, S2 RRR. no r/m/g pulm: CTA b/l abdomen: nontender, nondistended. soft LE: 2+ pulses, no edema neuro: choir member 2-12 grossly intact Laboratory Tests 03/08/19 03/08/19 03/08/19 07:10 07:10 07:10 WBC 5.7 Hgb 11.8 Hct 32.5 L Plt Count 174 Sodium 137 Potassium 3.4 L Chloride 106 Carbon Dioxide 25 Anion Gap 7 L BUN 10.7 Creatinine 0.6 Est GFR (CKD-EPI)AfAm 133.98 Random Glucose 180 H Hemoglobin A1c % Calcium 8.2 L Hep A IgM Ab Confirm Pending Hepatitis A Ab Total Pending Hep Bs Antigen Pending Hep Bs Antibody Pending Hep B Core Total Ab Pending Hep B Core IgM Ab Pending Hepatitis Be Antibody Pending Hepatitis Be Antigen Pending Hep C Ab Diagnostic Pending 03/08/19 07:10 WBC Hgb Hct Plt Count Sodium Potassium Chloride Carbon Dioxide Anion Gap BUN Creatinine Est GFR (CKD-EPI)AfAm Random Glucose Hemoglobin A1c % 14.6 H Calcium Hep A IgM Ab Confirm Hepatitis A Ab Total Hep Bs Antigen Hep Bs Antibody Hep B Core Total Ab Hep B Core IgM Ab Hepatitis Be Antibody Hepatitis Be Antigen Hep C Ab Diagnostic Microbiology 03/07/19 04:50 Urine - Urine Clean Catch Urine Culture - Final NO GROWTH OBTAINED 03/07/19 04:50 Urine - Urine Clean Catch Urine Culture - Final NO GROWTH OBTAINED Imaging 03/07/2019: CXR: no acute chest pathology. elevated L hemidiaphragm and normal mediastinum. degenerative changes with wedging. 03/07/2019: CTAP: no definite CT findings of acute pathology. chronic calcific pancreatitis. has increased in comparison to past CT 03/29/2014. interval development of dilation of main pancreatic duct in body and tail with a 0.8cm diameter. no obvious CT evidence of acute pancreatitis. Interval resolution of 6.2cm pancreatic tail pseudocyst. No longer visualization of 3mm nonobstructing L renal calculus may be due to interval passage. marked paucity of intra abdominal and subcutaneous fat which has developed since the last study. diffuse hepatic steatosis. at least moderate atherosclerotic vascular calcifications. diffuse colonic fecal retention hich is probably moderate to marked. 03/07/2019: Abd sono: chronic calcific pancreatitis. dilation in main pancreatic duct 0.9cm diameter. possible several intraductal calculi. correlation with EUS may be considered. no sono evidence of cholelithiasis, or acute cholecystitis. no definite biliary tract dilation. diffuse hepatic steatosis. 03/08/2019: Abdomen MRI: chronic pancreatitis with diffuse pancreatic ductal dilation. focal transitional zone in pancreatic ductal caliber in the head region which is heterogeneous. this could be 2/2 to ductal stricture however underlying occult malignancy cannot be excluded. no cholelithiasis or choledocholithiasis nor biliary duct dilation. multiple areas of geographic arterial hepatic enhancement as described above. demonstrating rapid washout with no corresponding t2 signal abnormality or restricted diffusion. findings could be 2/2 benign perfusion abnormality continued close f/u needed. F/u MRI of liver with contrast in 3-6 months recommended. large diffuse colonic stool burden suggesting severe constipation. questionable thickening of stomach wall could be 2/2 underdistension or could be underlying gastritis. cachexia with possible CT of intra abdominal subcutaneous fat with third spacing suggested by cutaneous and mesenteric edema. Assessment/Plan 54yo man with a PMH of pancreatitis, former alcohol abuse, current smoking (1/2 PPD from 2 PPD previously) who presents with over one month of productive cough , 6 months of intermittent left-sided abdominal pain, and chronic oily diarrhea. Admitted for chronic pancreatitis, hyperglycemia found to have new- onset DM likely 2/2 pancreatitis. #Chronic pancreatitis, w/ possible ?mass vs. stricture -as seen on MRI report outlined above -d/w pt, would benefit from transfer to [facility] for pancreaticobiliary w/u pt open to transfer at this time, however will c/t discuss w/ family -may need EUS to biopsy ?pancreatic mass vs. liver biopsy of lesions. ? hemangiomas -call placed to transfer center. awaiting call back -in interim, will send for CEA, AFP, CA 19-9. fecal fat, hep serologies -started on creon -IV NS 200 cc/hr, as w/ third spacing -GI: Dr. Humza Rouse #New onset DM2 -2/2 chronic pancreatitis -levemir 10 u sq qHS -ISS, BGM ACHS #Severe constipation -c/w miralax, senna, colace #active smoker -c/w nicotine patch #F/E/N IV NS 200 cc/hr continue to follow lytes diabetic diet #PPX dvt: scd's #Dispo cont'd monitoring on med-surg [facility]
[2019-03-08] MEDS ORDERED: POLYETHYLENE GLYCOL 3350 119 GM BTL PO SCH (14:30)
[2019-03-08] MEDS ORDERED: DOCUSATE SODIUM 100 MG CAPSULE (FP) PO SCH ×2 (14:30→17:45)
[2019-03-08] MEDS: SENNOSIDES 8.6MG TABLET (FP) PO SCH ×2 (15:17→21:34)
--- NOTE | 2019-03-08 16:12 | PN ---
Progress Note (short form) - Note Progress Note: MRI findings noted and discussed with housestaff. Unclear if pancreatic malignancy vs. benign stricture, thickening gastric wall and increased stool burden. D/W primary team senior resident Kristina. Agree with transfer to [facility] for continued pancreaticobiliary work-up. Bowel regimen. Glycemic control. Problem List - Problems (1) Chronic pancreatitis Code(s): K86.1 - OTHER CHRONIC PANCREATITIS Qualifiers: Pancreatitis type: other Qualified Code(s): K86.1 - Other chronic pancreatitis
[2019-03-08] MEDS ORDERED: LIPASE/PROTEASE/AMYLASE 36,000 UNIT CAPSULE PO SCH (17:30)
--- NOTE | 2019-03-08 19:22 | DS ---
Physical Exam: SUBJECTIVE: Patient seen and examined at bedside. With abdominal pain and cramping. For transfer to [facility]; has been accepted by Dr. Beavers. Hepatobiliary service, going to [facility] 7th floor. Tolerating PO OBJECTIVE: Vital Signs Period Temp Pulse Resp BP Sys/Perkins Pulse Ox Last 24 Hr 97.8 F-98.3 F 66-81 15-20 108-134/69-83 physical exam general: resting in bed, in NAD. thin HEENT: NCAT, PERRLA, moist mucous membraes neck: supple cardio: S1, S2 RRR. no r/m/g pulm: CTA b/l abdomen: nontender, nondistended. soft LE: 2+ pulses, no edema neuro: hedis registered nurse rn 2-12 grossly intact LABS 03/07/19 03/08/19 04:50 07:10 WBC 6.1 5.7 RBC 3.70 L 3.36 L Hct 36.8 D 32.5 L MCV 99.3 H 97.0 H MCH 34.6 H D 35.1 H MCHC 34.8 36.2 H RDW 13.3 13.4 Plt Count 207 D 174 MPV 7.3 L D 6.9 L 03/07/19 03/07/19 03/07/19 04:50 04:50 04:50 Sodium 130 L Potassium 3.8 Chloride 95 L Carbon Dioxide 22 Anion Gap 13 BUN 19.6 H Creatinine 1.0 POC Glucometer Random Glucose 669 H* Hemoglobin A1c % Lactic Acid 2.8 H* Calcium Magnesium Total Bilirubin 0.5 AST 38 H ALT 56 Alkaline Phosphatase 238 H Creatine Kinase Troponin I Total Protein 6.6 Albumin 3.3 L Lipase 53 L 03/07/19 03/07/19 03/07/19 04:50 04:50 08:45 Creatinine POC Glucometer 405 Random Glucose Hemoglobin A1c % Lactic Acid Calcium Magnesium 1.8 Total Bilirubin Alkaline Phosphatase Creatine Kinase 79 Troponin I < 0.02 Total Protein Albumin Lipase 03/07/19 03/07/19 03/08/19 11:20 18:30 07:10 Sodium 134 L 137 Potassium 3.4 L 3.4 L Chloride 100 106 Carbon Dioxide 28 25 Anion Gap 6 L 7 L BUN 13.2 10.7 Creatinine 0.8 0.6 POC Glucometer 93 Random Glucose 301 H 180 H Hemoglobin A1c % Lactic Acid Calcium 8.5 8.2 L Magnesium Total Bilirubin 03/08/19 03/08/19 07:10 07:28 POC Glucometer 189 Random Glucose Hemoglobin A1c % 14.6 H Lactic Acid 03/07/19 04:50 Urine Glucose (UA) 3+ H Urine Ketones Negative Urine Blood Negative Urine Nitrite Negative Urine Bilirubin Negative Urine Urobilinogen 0.2 03/08/19 07:10 Hep A IgM Ab Confirm Pending Hepatitis A Ab Total Pending Hep Bs Antigen Pending Hep Bs Antibody Pending Hep B Core Total Ab Pending Hep B Core IgM Ab Pending Hepatitis Be Antibody Pending Hepatitis Be Antigen Pending Hep C Ab Diagnostic Pending Microbiology 03/07/19 04:50 Urine - Urine Clean Catch Urine Culture - Final NO GROWTH OBTAINED Imaging 03/07/2019: CXR: no acute chest pathology. elevated L hemidiaphragm and normal mediastinum. degenerative changes with wedging. 03/07/2019: CTAP: no definite CT findings of acute pathology. chronic calcific pancreatitis. has increased in comparison to past CT 03/29/2014. interval development of dilation of main pancreatic duct in body and tail with a 0.8cm diameter. no obvious CT evidence of acute pancreatitis. Interval resolution of 6.2cm pancreatic tail pseudocyst. No longer visualization of 3mm nonobstructing L renal calculus may be due to interval passage. marked paucity of intra abdominal and subcutaneous fat which has developed since the last study. diffuse hepatic steatosis. at least moderate atherosclerotic vascular calcifications. diffuse colonic fecal retention hich is probably moderate to marked. 03/07/2019: Abd sono: chronic calcific pancreatitis. dilation in main pancreatic duct 0.9cm diameter. possible several intraductal calculi. correlation with EUS may be considered. no sono evidence of cholelithiasis, or acute cholecystitis. no definite biliary tract dilation. diffuse hepatic steatosis. 03/08/2019: Abdomen MRI: chronic pancreatitis with diffuse pancreatic ductal dilation. focal transitional zone in pancreatic ductal caliber in the head region which is heterogeneous. this could be 2/2 to ductal stricture however underlying occult malignancy cannot be excluded. no cholelithiasis or choledocholithiasis nor biliary duct dilation. multiple areas of geographic arterial hepatic enhancement as described above. demonstrating rapid washout with no corresponding t2 signal abnormality or restricted diffusion. findings could be 2/2 benign perfusion abnormality continued close f/u needed. F/u MRI of liver with contrast in 3-6 months recommended. large diffuse colonic stool burden suggesting severe constipation. questionable thickening of stomach wall could be 2/2 underdistension or could be underlying gastritis. cachexia with possible CT of intra abdominal subcutaneous fat with third spacing suggested by cutaneous and mesenteric edema. HOSPITAL COURSE: Date of Admission:03/07/19 Date of Discharge: 03/08/19 Assessment/Plan 54yo man with a PMH of pancreatitis, former alcohol abuse, current smoking (1/2 PPD from 2 PPD previously) who presents with over one month of productive cough , 6 months of intermittent left-sided abdominal pain, and chronic oily diarrhea. Admitted for chronic pancreatitis, hyperglycemia found to have new- onset DM likely 2/2 pancreatitis. #Chronic pancreatitis, w/ possible ?mass vs. stricture -as seen on MRI report outlined above -d/w pt, would benefit from transfer to [facility] for pancreaticobiliary w/u pt open to transfer at this time, however will c/t discuss w/ family -may need EUS to biopsy ?pancreatic mass vs. liver biopsy of lesions. ? hemangiomas -in interim, will send for CEA, AFP, CA 19-9. fecal fat, hep serologies -started on creon -IV NS 200 cc/hr, as w/ third spacing -GI: Dr. Humza Rouse #New onset DM2 -2/2 chronic pancreatitis -levemir 10 u sq qHS -ISS, BGM ACHS #Severe constipation -c/w miralax, senna, colace #active smoker -c/w nicotine patch #F/E/N IV NS 200 cc/hr continue to follow lytes diabetic diet #PPX dvt: scd's, avoid chemical a/c for now in case intervention planned #Dispo accepted to [facility] under hepatobiliary service accepting physician: Dr. Beavers to go to [facility] Minutes to complete discharge: 45 Discharge Summary Problems reviewed: Yes Reason For Visit: UNINTENDED WEIGHT LOSS;HYPERGLYCEMIA;DILATION OF Current Active Problems Chronic cough (Acute) Chronic pancreatitis (Acute) Hyperglycemia (Acute) Hypokalemia (Acute) New onset type 2 diabetes mellitus (Acute) Pancreatic duct dilated (Acute) Weight loss, unintentional (Acute) Condition: Guarded - Instructions Disposition: TRANSFER ACUTE CARE/OTHER HOSP - Home Medications Comprehensive Discharge Medication List: Ambulatory Orders Bupropion HCl [Zyban] 150 mg PO DAILY 03/29/14 Thiamine HCl [Vitamin B-1] 100 mg PO DAILY 03/29/14 This patient is new to me today: Yes Date on this admission: 03/08/19 Emergency Visit: No Critical Care patient: No - Discharge Referral Referred to [facility] No
[2019-03-08] MEDS ORDERED: INSULIN (LEVEMIR) 100 UNITS/ML UNITS SQ SCH ×2 (22:00)
[2019-03-08 22:08] VITALS: BP 141/78; PULSE 79; TEMP 97.7
[2019-03-09 17:07] LABS: HEP B CORE AB, TOT Negative (Negative)
== END 2019-03-08 22:10 | disposition short-term general hospital (02) | DRG 439 ==
LOC: JER 03:34 → JERBED 09:46 → J8W 16:13
PROVIDERS: ADMIT Internal Medicine; ATTEND Internal Medicine
DX: K86.89 Other specified diseases of pancreas (principal); Z68.1 Body mass index [BMI] 19.9 or less, adult; F17.210 Nicotine dependence, cigarettes, uncomplicated; K86.1 Other chronic pancreatitis; E86.0 Dehydration; R63.4 Abnormal weight loss; F10.20 Alcohol dependence, uncomplicated; E11.65 Type 2 diabetes mellitus with hyperglycemia; E87.6 Hypokalemia; K59.09 Other constipation
CPT/HCPCS: 36415; 71046-TC-FY; 74177-TC; 74183-TC; 76700-TC; 80048; 80053; 81003; 82550; 82962; 83036; 83605; 83690; 83735; 84484; 85025; 86704; 86706; 86707; 86708; 86709; 86803; 87086; 87340; 93005; 93010; 99285-25; A9579; G0008; J7030; Q2036; Q9967

== ENCOUNTER 2020-03-21 17:57 | Emergency (ER) | payer OTHER ==
[2020-03-21 18:20] VITALS: BP 146/95; PULSE 104; TEMP 97; BMI 17.2
[2020-03-21 19:52] LABS: BASO % 0.5 % (0-2.0); EOS % 2.2 % (0-4.5); HEMATOCRIT 42.2 % (35.4-49); LYMPH % 37.2 % (8-40); MCH 36.8 pg (25.7-33.7); MCHC 35.6 g/dl (32.0-35.9); MEAN CELL VOLUME 103.4 fl (80-96); MEAN PLT VOLUME 7.1 fl (7.5-11.1); MONO % 9.7 % (3.8-10.2); NEUT % 50.4 % (42.8-82.8); PLATELET COUNT 190 K/MM3 (134-434); RBC 4.08 M/mm3 (4.00-5.60); RDW 12.8 % (11.9-15.9); WHITE BLOOD COUNT 6.1 K/mm3 (4.0-10.0)
[2020-03-21 20:03] LABS: CHLORIDE 102 mmol/L (98-107); POTASSIUM 4.2 mmol/L (3.5-5.1); SODIUM 137 mmol/L (136-145)
[2020-03-21 20:05] LABS: ALBUMIN 3.8 g/dl (3.4-5.0); ANION GAP 7 MMOL/L (8-16); BLOOD UREA NITROGEN 4.2 mg/dL (7-18); CALCIUM 8.9 mg/dL (8.5-10.1); CO2 28 mmol/L (21-32); MAGNESIUM 1.6 mg/dL (1.8-2.4)
[2020-03-21 20:06] LABS: GLUCOSE,RANDOM 130 mg/dL (74-106)
[2020-03-21 20:09] LABS: SGPT/ALT 42 U/L (13-61)
[2020-03-21 20:10] LABS: CREATININE 0.7 mg/dL (0.55-1.3); SGOT/AST 59 U/L (15-37)
[2020-03-21 20:11] LABS: BILIRUBIN,TOTAL 0.7 mg/dL (0.2-1); TOT PROT 6.9 g/dl (6.4-8.2)
[2020-03-21 20:12] LABS: ALK PHOS 155 U/L (45-117)
[2020-03-21 20:14] LABS: N-TERMINAL BNP 40.4 pg/ml (5-125)
== END 2020-03-21 21:18 | disposition left against medical advice (07) ==
LOC: JER 17:57
DX: R06.02 Shortness of breath (principal)
CPT/HCPCS: 36415; 71045-TC-FY; 80053; 83735; 83880; 84484; 85025; 86900; 93005; 93010; 99285-25

== ENCOUNTER 2020-09-22 17:47 | Emergency (ER) | payer OTHER ==
[2020-09-22 18:04] VITALS: BMI 18.1
[2020-09-22] MEDS ORDERED: SODIUM CHLORIDE 1,000 ML IV STA ×2 (18:17→19:22)
[2020-09-22 18:40] LABS: BASO % 0.2 % (0-2.0); HEMATOCRIT 42.8 % (35.4-49); LYMPH % 6.7 % (8-40); MCH 36.7 pg (25.7-33.7); MEAN PLT VOLUME 7.4 fl (7.5-11.1); MONO % 9.7 % (3.8-10.2); NEUT % 83.4 % (42.8-82.8); PLATELET COUNT 95 10^3/uL (134-434); RBC 4.08 M/mm3 (4.00-5.60); RDW 13.6 % (11.9-15.9); WHITE BLOOD COUNT 7.9 K/mm3 (4.0-10.0)
[2020-09-22 18:41] LABS: VENOUS BASE EXCESS 4.9 mmol/L (-2-2); VENOUS O2 SATURATION 36.2 % (70-80); VENOUS PCO2 49.1 mmHg (38-52); VENOUS PH 7.413 (7.310-7.410)
[2020-09-22] MEDS ORDERED: ONDANSETRON 4 MG/2 ML VIAL IVPUSH ONE ×2 (18:59→23:19)
[2020-09-22 19:00] LABS: CHLORIDE 92 mmol/L (98-107); SODIUM 136 mmol/L (136-145)
[2020-09-22] MEDS ORDERED: FAMOTIDINE 20 MG/50 ML IVPB 20 MG/50 ML MG IVPB ONE ×2 (19:00→19:10)
[2020-09-22] MEDS ORDERED: MAG HYDROX/AL HYDROX/SIMETH 30 ML UNIT-DOSE CUP PO ONE (19:00)
[2020-09-22 19:03] LABS: ALBUMIN 4.3 g/dl (3.4-5.0); ANION GAP 17 MMOL/L (8-16); CALCIUM 9.4 mg/dL (8.5-10.1); CO2 27 mmol/L (21-32); GLUCOSE,RANDOM 275 mg/dL (74-106)
[2020-09-22 19:04] LABS: BLOOD UREA NITROGEN 12.4 mg/dL (7-18); LIPASE 24 U/L (73-393)
[2020-09-22 19:05] LABS: CREATININE 1.3 mg/dL (0.55-1.3); SGOT/AST 144 U/L (15-37); SGPT/ALT 112 U/L (13-61)
[2020-09-22 19:07] LABS: BILIRUBIN,TOTAL 2.6 mg/dL (0.2-1); TOT PROT 8.4 g/dl (6.4-8.2)
[2020-09-22 19:09] LABS: ALK PHOS 304 U/L (45-117)
[2020-09-22] MEDS ORDERED: MAG HYDROX/AL HYDROX/SIMETH 30 ML UNIT-DOSE CUP ONE (19:10)
[2020-09-22] MEDS ORDERED: ONDANSETRON 4 MG/2 ML VIAL ONE ×2 (19:10→23:22)
[2020-09-22 19:12] LABS: LACTIC ACID 7.1 mmol/L (0.4-2.0)
[2020-09-22] MEDS ORDERED: SODIUM CHLORIDE 0.9% 500 ML INFUS.BAG IV ONE (19:43)
[2020-09-22 20:04] LABS: ANISOCYTOSIS 1+; MACROCYTOSIS 1+; PLATELET ESTIMATE DECREASED
[2020-09-23 01:46] LABS: LACTIC ACID 2.3 mmol/L (0.4-2.0)
[2020-09-23] MEDS ORDERED: SODIUM CHLORIDE 0.9% 500 ML INFUS.BAG IV ONE (02:04)
[2020-09-23 05:50] VITALS: BP 114/76; PULSE 84; TEMP 98.9
== END 2020-09-23 05:51 | disposition home or self-care (01) ==
LOC: JER 17:47
PROC: 3E033GC Introduction of Other Therapeutic Substance into Peripheral Vein, Percutaneous Approach (ICD-10-PCS; principal; 2020-09-22)
PROC: 3E033GC Introduction of Other Therapeutic Substance into Peripheral Vein, Percutaneous Approach (ICD-10-PCS; 2020-09-22)
PROC: 3E033GC Introduction of Other Therapeutic Substance into Peripheral Vein, Percutaneous Approach (ICD-10-PCS; 2020-09-22)
PROC: 3E033GC Introduction of Other Therapeutic Substance into Peripheral Vein, Percutaneous Approach (ICD-10-PCS; 2020-09-22)
PROC: 3E0337Z Introduction of Electrolytic and Water Balance Substance into Peripheral Vein, Percutaneous Approach (ICD-10-PCS; 2020-09-22)
PROC: 3E0337Z Introduction of Electrolytic and Water Balance Substance into Peripheral Vein, Percutaneous Approach (ICD-10-PCS; 2020-09-22)
DX: K86.1 Other chronic pancreatitis (principal)
CPT/HCPCS: 36415; 71045-TC-FY; 74177-TC; 76705-TC; 80053; 82010; 82550; 82553; 82803; 83605; 83690; 84484; 85025; 93005; 93010; 99285-25; C9803; Q9967; U0003; U0005

== ENCOUNTER 2021-04-13 08:07 | Inpatient (IN) | payer OTHER ==
[2021-04-13] MEDS ORDERED: SODIUM CHLORIDE 0.9% 500 ML INFUS.BAG IV ONE ×2 (08:37→10:30)
[2021-04-13 09:39] LABS: VENOUS BASE EXCESS -17.1 mmol/L (-2-2); VENOUS PCO2 31.9 mmHg (38-52)
[2021-04-13 09:40] LABS: VENOUS PH 7.143 (7.310-7.410)
[2021-04-13 09:53] LABS: HEMATOCRIT 31.6 % (35.4-49); HEMOGLOBIN 10.9 GM/dL (11.7-16.9); MCHC 34.5 g/dl (32.0-35.9); MEAN CELL VOLUME 117.1 fl (80-96); MEAN PLT VOLUME 8.8 fl (7.5-11.1); PLATELET COUNT 112 10^3/uL (134-434); RBC 2.69 M/mm3 (4.00-5.60); RDW 14.7 % (11.9-15.9)
[2021-04-13 10:10] LABS: MCH 40.4 pg (25.7-33.7)
[2021-04-13 10:16] LABS: CHLORIDE 86 mmol/L (98-107); SODIUM 123 mmol/L (136-145)
[2021-04-13 10:17] LABS: LACTIC ACID 18.8 mmol/L (0.4-2.0)
[2021-04-13 10:18] LABS: CALCIUM 7.9 mg/dL (8.5-10.1)
[2021-04-13 10:19] LABS: ALBUMIN 1.8 g/dl (3.4-5.0); BLOOD UREA NITROGEN 21.6 mg/dL (7-18); CO2 13 mmol/L (21-32); GLUCOSE,RANDOM 84 mg/dL (74-106); LIPASE < 10 U/L (73-393)
[2021-04-13 10:23] LABS: BILIRUBIN,TOTAL 8.5 mg/dL (0.2-1); CREATININE 2.3 mg/dL (0.55-1.3); SGOT/AST 276 U/L (15-37); SGPT/ALT 68 U/L (13-61)
[2021-04-13 10:25] LABS: ALK PHOS 412 U/L (45-117); TOT PROT 6.6 g/dl (6.4-8.2)
[2021-04-13] MEDS ORDERED: LORazepam 2 MG/ML SDV VIAL IVPUSH STA (10:30)
[2021-04-13] MEDS ORDERED: ACETAMINOPHEN 1000 MG/100 ML BAG IVPB ONE (10:33)
[2021-04-13] MEDS ORDERED: VANCOMYCIN 1 GM in D5W (PRE-DOCKED) 1,000 MG/250 ML IVPB ONE (10:33)
[2021-04-13] MEDS ORDERED: SODIUM BICARBONATE 4.2% 5 MEQ/10 ML DISP.SYRIN IVPUSH ONE ×2 (10:34→10:50)
[2021-04-13] MEDS ORDERED: PIPERACILLIN/TAZOB 3.375 GM 3.375 GM in DEXTROSE 5%-WATER - 50 ML IVPB ONE (10:34)
[2021-04-13] MEDS ORDERED: HALOPERIDOL LACTATE 5 MG/ML IM ONE (10:48)
[2021-04-13] MEDS ORDERED: VANCOMYCIN 1 GRAM (PRE-DOCKED) 1,000 MG/250 ML BAG IVPB ONE (10:50)
[2021-04-13] MEDS ORDERED: ACETAMINOPHEN INJECTION 100 ML IVPB ONE (10:50)
[2021-04-13] MEDS ORDERED: HALOPERIDOL LACTATE 5 MG/ML ONE (10:50)
[2021-04-13] MEDS ORDERED: PIPERACILLIN/TAZOB 3.375 GM 3.375 GM/50 ML BAG IVPB ONE (10:51)
[2021-04-13] MEDS ORDERED: FOLIC ACID INJECTION - 1 MG, THIAMINE HCL 100 MG, MULTIVIT INJECTION ADULT 10 ML in SOD... IVPB ONE (11:25)
[2021-04-13 12:25] LABS: ANISOCYTOSIS 0; MACROCYTOSIS 2+; PLATELET ESTIMATE DECREASED
[2021-04-13 13:08] LABS: ACTIVATED PTT 45.8 SECONDS (25.2-36.5)
[2021-04-13 13:24] LABS: PROTHROMBIN TIME (PATIENT) 61.9 SEC (9.7-13.0)
[2021-04-13 13:33] LABS: INR 5.22 (0.83-1.09)
[2021-04-13 14:12] LABS: ANION GAP 25 MMOL/L (8-16); N-TERMINAL BNP 2060.9 pg/ml (5-125)
[2021-04-13 15:06] LABS: HEMATOCRIT 29.3 % (35.4-49); HEMOGLOBIN 9.5 GM/dL (11.7-16.9); LACTIC ACID 20.7 mmol/L (0.4-2.0); MCH 39.5 pg (25.7-33.7); MCHC 32.6 g/dl (32.0-35.9); MEAN CELL VOLUME 121.3 fl (80-96); MEAN PLT VOLUME 8.1 fl (7.5-11.1); PLATELET COUNT 58 10^3/uL (134-434); RBC 2.41 M/mm3 (4.00-5.60); RDW 14.9 % (11.9-15.9); VENOUS BASE EXCESS -20.1 mmol/L (-2-2); VENOUS O2 SATURATION 93.5 % (70-80); VENOUS PCO2 23.8 mmHg (38-52); WHITE BLOOD COUNT 8.2 K/mm3 (4.0-10.0)
[2021-04-13 15:09] LABS: VENOUS PH 7.122 (7.310-7.410)
[2021-04-13 15:29] LABS: CALCIUM 7.5 mg/dL (8.5-10.1)
[2021-04-13 15:31] LABS: ALBUMIN 1.6 g/dl (3.4-5.0); BLOOD UREA NITROGEN 20.8 mg/dL (7-18)
[2021-04-13 15:34] LABS: BILIRUBIN,TOTAL 7.5 mg/dL (0.2-1)
[2021-04-13 15:36] LABS: TOT PROT 5.6 g/dl (6.4-8.2)
[2021-04-13] MEDS ORDERED: DEXTROSE 50%-WATER - 25 GM/50 ML VIAL IVPUSH ONE (15:37)
[2021-04-13] MEDS ORDERED: SODIUM CHLORIDE 0.45% 1,000 ML IV SCH (15:45)
[2021-04-13] MEDS ORDERED: DEXTROSE 50%-WATER 25 GM/50 ML DISP.SYRIN ONE (15:49)
[2021-04-13] MEDS ORDERED: diazePAM CARPU-JECT 10 MG/2 ML DISP.SYRIN IVPUSH SCH (16:00)
[2021-04-13] MEDS ORDERED: DEXTROSE 50%-WATER - 25 GM/50 ML VIAL IVPUSH PRN (16:01)
[2021-04-13] MEDS ORDERED: diazePAM CARPU-JECT 10 MG/2 ML DISP.SYRIN ONE (16:32)
[2021-04-13] MEDS ORDERED: THIAMINE HCL 200 MG/2 ML VIAL ONE (16:33)
[2021-04-13] MEDS: THIAMINE HCL 200 MG/2 ML VIAL IVPB SCH (16:35)
[2021-04-13] MEDS ORDERED: SODIUM BICARBONATE 8.4% - 50 ML ONE ×2 (17:34→18:18)
[2021-04-13] MEDS: FOLIC ACID 5 MG/1 ML SQ SCH (17:38)
[2021-04-13] MEDS: SODIUM BICARBONATE 8.4% 50 MEQ/50 ML DISP.SYRIN IVPUSH SCH ×2 (17:38→18:37)
[2021-04-13] MEDS ORDERED: DEXTROSE 5%-WATER - 1,000 ML with SODIUM BICARBONATE 8.4% - 100 MEQ IV SCH (18:00)
[2021-04-13 18:31] LABS: BLOOD UREA NITROGEN 21.3 mg/dL (7-18); CALCIUM 7.4 mg/dL (8.5-10.1); MAGNESIUM 1.2 mg/dL (1.8-2.4)
[2021-04-13 18:35] LABS: CREATININE 2.1 mg/dL (0.55-1.3); PHOSPHOROUS 5.6 mg/dL (2.5-4.9)
[2021-04-13] MEDS: DEXTROSE 5%-WATER - 1,000 ML with SODIUM BICARBONATE 8.4% - 100 MEQ IV SCH (18:37)
[2021-04-13 18:56] LABS: LACTIC ACID 20.2 mmol/L (0.4-2.0)
[2021-04-13] MEDS ORDERED: RAPID SEQUENCE INTUBATION KIT NR ONE (19:42)
[2021-04-13] MEDS ORDERED: DEXTROSE 5%-WATER 100 ML IVPB ONE (20:11)
[2021-04-13] MEDS ORDERED: PIPERACILLIN/TAZOBACTAM 4.5 GM VIAL IVPB ONE (20:11)
[2021-04-13 20:27] LABS: ARTERIAL BLD GAS O2 SATURATION 99.8 % (95-98); ARTERIAL BLOOD GAS BASE EXCESS -19.2 mmol/L (-2-2); ARTERIAL BLOOD GAS PO2 474.3 mmHg (80-100)
[2021-04-13 20:30] LABS: ALLENS TEST POSITIVE
[2021-04-13 20:31] LABS: VENT MODE A/C; VENT RATE 16
[2021-04-13 20:32] LABS: ARTERIAL BLOOD GAS pH 7.115 (7.350-7.450)
[2021-04-13] MEDS: PIPERACILLIN/TAZOB 4.5 GM 4.5 GM in DEXTROSE 5%-WATER 100 ML IVPB SCH (20:35)
[2021-04-13 20:47] VITALS: BMI 20.9
[2021-04-13 20:58] LABS: EPI CELLS >36 /uL (0-25.1); HYALINE CASTS 42 /uL (0-3.1); URINE APPEARANCE TURBID; URINE BILIRUBIN 3+ (NEGATIVE); URINE COLOR DK YELLOW; URINE GLUCOSE (UA) NEGATIVE (NEGATIVE); URINE KETONE NEGATIVE (NEGATIVE); URINE LEUK ESTERASE TRACE (NEGATIVE); URINE NITRITE POSITIVE (NEGATIVE); URINE PROTEIN 1+ (NEGATIVE); URINE WBC 253 /uL (0-25.8)
[2021-04-13 21:07] LABS: COCAINE, UR NEGATIVE (NEGATIVE); METHADONE, UR NEGATIVE (NEGATIVE); OPIATES, URI NEGATIVE (NEGATIVE); PHENCYCLIDINE,URINE NEGATIVE (NEGATIVE); URINE AMPHETAMINES NEGATIVE (NEGATIVE); URINE BARBITURATES NEGATIVE (NEGATIVE)
[2021-04-13 21:08] LABS: URINE BENZODIAZEPINES NEGATIVE (NEGATIVE)
[2021-04-13 22:08] LABS: URINE BACTERIA 0 /uL (0-1359); URINE RBC 71.6 /uL (0-23.9)
[2021-04-13 23:14] LABS: CHLORIDE 91 mmol/L (98-107); SODIUM 128 mmol/L (136-145)
[2021-04-13 23:18] LABS: ANION GAP 27 MMOL/L (8-16); BLOOD UREA NITROGEN 21.6 mg/dL (7-18); CO2 10 mmol/L (21-32); GLUCOSE,RANDOM 135 mg/dL (74-106); MAGNESIUM 1.1 mg/dL (1.8-2.4)
[2021-04-13 23:21] LABS: CREATININE 2.3 mg/dL (0.55-1.3); PHOSPHOROUS 6.1 mg/dL (2.5-4.9)
[2021-04-13 23:23] LABS: CALCIUM 6.8 mg/dL (8.5-10.1)
[2021-04-13 23:44] LABS: LACTIC ACID 21.4 mmol/L (0.4-2.0)
[2021-04-14] MEDS: NOREPINEPHRINE BITARTRATE 16,000 MCG in DEXTROSE 5%-WATER - 16,000 MCG/500 ML INFUS.BAG IVPB SCH ×2 (00:05→21:26)
[2021-04-14] MEDS: CHLORHEXIDINE GLUCONATE 4% CLEANSER FOR DECOLONIZATION TP SCH ×2 (00:06→21:26)
[2021-04-14] MEDS: LACTATED RINGERS SOLUTION 1,000 ML/1,000 ML INFUS.BAG IV SCH ×2 (00:21→21:27)
[2021-04-14] MEDS ORDERED: MAGNESIUM SULF 50% (8.12 MEQ/2 ML-1 GM VIAL) IVPB ONE (00:29)
[2021-04-14 00:34] LABS: BF WBC & OTHER NUCLEATED CELLS 5 /mm3
[2021-04-14] MEDS ORDERED: PIPERACILLIN/TAZOBACTAM 4.5 GM VIAL IVPB ONE ×2 (01:05→09:17)
[2021-04-14] MEDS ORDERED: DEXTROSE 5%-WATER 100 ML IVPB ONE ×2 (01:05→09:17)
[2021-04-14] MEDS: MUPIROCIN 2% TOPICAL OINTMENT FOR DECOLONIZATION NS SCH ×3 (01:13→21:28)
[2021-04-14] MEDS: PROPOFOL 1,000,000 MCG/100 ML VIAL IVPUSH SCH ×2 (02:39→21:26)
[2021-04-14] MEDS: PIPERACILLIN/TAZOB 4.5 GM 4.5 GM in DEXTROSE 5%-WATER 100 ML IVPB SCH ×2 (02:39→10:18)
[2021-04-14 02:56] LABS: CALCIUM 7.2 mg/dL (8.5-10.1)
[2021-04-14 02:57] LABS: BLOOD UREA NITROGEN 20.6 mg/dL (7-18); MAGNESIUM 1.4 mg/dL (1.8-2.4)
[2021-04-14 03:01] LABS: CREATININE 2.4 mg/dL (0.55-1.3)
[2021-04-14 03:32] LABS: LACTIC ACID 20.6 mmol/L (0.4-2.0)
[2021-04-14] MEDS ORDERED: LACTATED RINGERS SOLUTION 1000 ML INFUS.BAG IV ONE (03:33)
[2021-04-14 04:11] LABS: HEMATOCRIT 27.2 % (35.4-49); HEMOGLOBIN 8.9 GM/dL (11.7-16.9); MCH 39.6 pg (25.7-33.7); MCHC 32.7 g/dl (32.0-35.9); MEAN CELL VOLUME 121.2 fl (80-96); PLATELET COUNT 51 10^3/uL (134-434); RBC 2.24 M/mm3 (4.00-5.60); RDW 15.3 % (11.9-15.9); WHITE BLOOD COUNT 12.3 K/mm3 (4.0-10.0)
[2021-04-14] MEDS: DEXTROSE 5%-WATER - 1,000 ML with SODIUM BICARBONATE 8.4% - 100 MEQ IV SCH (04:22)
[2021-04-14] MEDS: VASOPRESSIN 40 UNITS in SODIUM CHLORIDE 40 UNITS/100 ML INFUS.BAG IVPB SCH ×2 (06:30→21:27)
[2021-04-14 08:00] LABS: PROTHROMBIN TIME (PATIENT) 51.8 SEC (9.7-13.0)
[2021-04-14 08:02] LABS: ACTIVATED PTT 39.8 SECONDS (25.2-36.5)
[2021-04-14 08:06] LABS: CHLORIDE 88 mmol/L (98-107); SODIUM 127 mmol/L (136-145)
[2021-04-14 08:07] LABS: HEMATOCRIT 27.2 % (35.4-49); HEMOGLOBIN 8.6 GM/dL (11.7-16.9); MCH 39.6 pg (25.7-33.7); MCHC 31.7 g/dl (32.0-35.9); MEAN CELL VOLUME 124.8 fl (80-96); MEAN PLT VOLUME 8.7 fl (7.5-11.1); PLATELET COUNT 60 10^3/uL (134-434); RBC 2.18 M/mm3 (4.00-5.60); RDW 15.6 % (11.9-15.9); WHITE BLOOD COUNT 12.5 K/mm3 (4.0-10.0)
[2021-04-14 08:15] LABS: CALCIUM 7.3 mg/dL (8.5-10.1)
[2021-04-14 08:16] LABS: ALBUMIN 1.6 g/dl (3.4-5.0); ANION GAP 29 MMOL/L (8-16); BLOOD UREA NITROGEN 21.6 mg/dL (7-18); CO2 10 mmol/L (21-32); GLUCOSE,RANDOM 178 mg/dL (74-106); LIPASE 13 U/L (73-393); MAGNESIUM 1.5 mg/dL (1.8-2.4)
[2021-04-14 08:19] LABS: CREATININE 2.5 mg/dL (0.55-1.3); PHOSPHOROUS 5.5 mg/dL (2.5-4.9); SGPT/ALT 253 U/L (13-61)
[2021-04-14 08:20] LABS: BILIRUBIN,TOTAL 8.6 mg/dL (0.2-1)
[2021-04-14 08:22] LABS: TOT PROT 5.3 g/dl (6.4-8.2)
[2021-04-14 08:33] LABS: ALK PHOS 319 U/L (45-117); LACTIC ACID 21.9 mmol/L (0.4-2.0); SGOT/AST 1863 U/L (15-37)
[2021-04-14 09:05] LABS: INR 4.44 (0.83-1.09)
[2021-04-14] MEDS: THIAMINE HCL 200 MG/2 ML VIAL IVPB SCH (09:29)
[2021-04-14] MEDS: MULTIVIT INJ. ADULT COMBO WITH VIT K 1 COMBO 10 ML VIAL IV SCH (10:16)
[2021-04-14] MEDS: FOLIC ACID 5 MG/1 ML SQ SCH (11:12)
[2021-04-14 11:29] LABS: ANISOCYTOSIS 0; HELMET CELLS 0; HOWELL-JOLLY BODIES 0; MACROCYTOSIS 0; OVALOCYTE 0; PLATELET ESTIMATE DECREASED; ROULEAU 0; SICKELED CELLS 0; TARGET CELLS 0; TEAR DROP CELLS 0; TOXIC GRANULATION 0
[2021-04-14] MEDS ORDERED: PHYTONADIONE 10 MG/1 ML AMP IVPB ONE (13:15)
[2021-04-14 15:01] LABS: TOTAL IRON BINDING CAPACITY 98 ug/dL (250-450)
[2021-04-14 15:08] LABS: IRON SERUM 91 ug/dL (50-175)
[2021-04-14 15:09] LABS: LDH 1789 U/L (87-246)
[2021-04-14] MEDS ORDERED: SODIUM BICARBONATE 8.4% 50 MEQ/50 ML DISP.SYRIN IVPUSH ONE (17:05)
[2021-04-14 18:08] LABS: HEMATOCRIT 24.1 % (35.4-49); HEMOGLOBIN 8.2 GM/dL (11.7-16.9); MCHC 33.9 g/dl (32.0-35.9); MEAN PLT VOLUME 8.4 fl (7.5-11.1); PLATELET COUNT 37 10^3/uL (134-434); RBC 2.02 M/mm3 (4.00-5.60); RDW 14.8 % (11.9-15.9); WHITE BLOOD COUNT 8.6 K/mm3 (4.0-10.0)
[2021-04-14 18:11] LABS: MCH 40.3 pg (25.7-33.7)
[2021-04-14] MEDS ORDERED: DEXTROSE 5%-WATER - 50 ML IVPB ONE (18:15)
[2021-04-14] MEDS ORDERED: PIPERACILLIN/TAZOBACTAM 2.25 GM VIAL IVPB ONE (18:15)
[2021-04-14 18:20] LABS: INR 2.67 (0.83-1.09)
[2021-04-14 18:23] LABS: ACTIVATED PTT 34.2 SECONDS (25.2-36.5)
[2021-04-14] MEDS: PIPERACILLIN/TAZOB 2.25 GM 2.25 GM in DEXTROSE 5%-WATER - 50 ML IVPB SCH (18:24)
[2021-04-14] MEDS: SODIUM BICARBONATE 8.4% - 150 MEQ in DEXTROSE 5%-WATER - 1,000 ML IV SCH (18:27)
[2021-04-14 18:35] LABS: BLOOD UREA NITROGEN 20.6 mg/dL (7-18); CALCIUM 7.3 mg/dL (8.5-10.1)
[2021-04-14 18:41] LABS: BILIRUBIN,TOTAL 9.1 mg/dL (0.2-1); TOT PROT 5.6 g/dl (6.4-8.2)
[2021-04-15 01:11] LABS: CHLORIDE 85 mmol/L (98-107); SODIUM 128 mmol/L (136-145)
[2021-04-15 01:12] LABS: BASO % 0.2 % (0-2.0); EOS % 1.7 % (0-4.5); HEMATOCRIT 24.3 % (35.4-49); HEMOGLOBIN 8.3 GM/dL (11.7-16.9); LYMPH % 5.6 % (8-40); MCHC 34.3 g/dl (32.0-35.9); MEAN CELL VOLUME 119.6 fl (80-96); MEAN PLT VOLUME 8.5 fl (7.5-11.1); MONO % 3.6 % (3.8-10.2); NEUT % 88.9 % (42.8-82.8); RBC 2.03 M/mm3 (4.00-5.60); RDW 14.9 % (11.9-15.9); WHITE BLOOD COUNT 8.1 K/mm3 (4.0-10.0)
[2021-04-15 01:14] LABS: ALBUMIN 1.8 g/dl (3.4-5.0); ANION GAP 27 MMOL/L (8-16); BLOOD UREA NITROGEN 21.2 mg/dL (7-18); CO2 16 mmol/L (21-32); GLUCOSE,RANDOM 298 mg/dL (74-106)
[2021-04-15 01:17] LABS: CREATININE 3.2 mg/dL (0.55-1.3); INR 3.61 (0.83-1.09); PROTHROMBIN TIME (PATIENT) 42.1 SEC (9.7-13.0); SGPT/ALT 266 U/L (13-61)
[2021-04-15 01:20] LABS: ALK PHOS 284 U/L (45-117); TOT PROT 5.2 g/dl (6.4-8.2)
[2021-04-15 01:24] LABS: PLATELET COUNT 30 10^3/uL (134-434)
[2021-04-15 01:30] LABS: CALCIUM 6.4 mg/dL (8.5-10.1); SGOT/AST 1947 U/L (15-37)
[2021-04-15] MEDS ORDERED: DEXTROSE 5%-WATER - 50 ML IVPB ONE ×3 (01:42→17:24)
[2021-04-15] MEDS ORDERED: PIPERACILLIN/TAZOBACTAM 2.25 GM VIAL IVPB ONE ×3 (01:42→17:24)
[2021-04-15] MEDS: PIPERACILLIN/TAZOB 2.25 GM 2.25 GM in DEXTROSE 5%-WATER - 50 ML IVPB SCH ×3 (01:58→17:39)
[2021-04-15 04:06] LABS: ANISOCYTOSIS 2+; MACROCYTOSIS 2+
[2021-04-15 04:07] LABS: PLATELET ESTIMATE MOD DECREASED
[2021-04-15] MEDS: SODIUM BICARBONATE 8.4% - 150 MEQ in DEXTROSE 5%-WATER - 1,000 ML IV SCH ×2 (05:44→17:51)
[2021-04-15 07:30] LABS: BASO % 0.3 % (0-2.0); EOS % 0.8 % (0-4.5); HEMOGLOBIN 7.6 GM/dL (11.7-16.9); LYMPH % 5.6 % (8-40); MCHC 34.3 g/dl (32.0-35.9); MEAN CELL VOLUME 119.1 fl (80-96); MONO % 3.3 % (3.8-10.2); PLATELET COUNT 109 10^3/uL (134-434); RBC 1.85 M/mm3 (4.00-5.60); RDW 14.4 % (11.9-15.9); WHITE BLOOD COUNT 7.5 K/mm3 (4.0-10.0)
[2021-04-15 07:34] LABS: INR 2.69 (0.83-1.09); PROTHROMBIN TIME (PATIENT) 31.2 SEC (9.7-13.0)
[2021-04-15 07:35] LABS: MCH 40.8 pg (25.7-33.7)
[2021-04-15 07:54] LABS: BLOOD UREA NITROGEN 20.3 mg/dL (7-18); MAGNESIUM 1.1 mg/dL (1.8-2.4)
[2021-04-15 07:56] LABS: CREATININE 3.3 mg/dL (0.55-1.3)
[2021-04-15 07:57] LABS: BILIRUBIN,DIRECT 7.1 mg/dL (0.0-0.2); PHOSPHOROUS 4.5 mg/dL (2.5-4.9)
[2021-04-15 07:58] LABS: TOT PROT 5.5 g/dl (6.4-8.2)
[2021-04-15] MEDS: NOREPINEPHRINE BITARTRATE 16,000 MCG in DEXTROSE 5%-WATER - 16,000 MCG/500 ML INFUS.BAG IVPB SCH ×2 (08:16→21:11)
[2021-04-15] MEDS: DEXTROSE 5%-WATER - 1,000 ML with SODIUM BICARBONATE 8.4% - 100 MEQ IV SCH (08:17)
[2021-04-15] MEDS: VASOPRESSIN 40 UNITS in SODIUM CHLORIDE 40 UNITS/100 ML INFUS.BAG IVPB SCH (08:17)
[2021-04-15] MEDS: LACTATED RINGERS SOLUTION 1,000 ML/1,000 ML INFUS.BAG IV SCH ×2 (08:17→08:27)
[2021-04-15] MEDS: PIPERACILLIN/TAZOB 4.5 GM 4.5 GM in DEXTROSE 5%-WATER 100 ML IVPB SCH ×2 (08:17→08:18)
[2021-04-15] MEDS: FOLIC ACID 5 MG/1 ML SQ SCH (09:01)
[2021-04-15] MEDS: MUPIROCIN 2% TOPICAL OINTMENT FOR DECOLONIZATION NS SCH ×2 (09:01→21:10)
[2021-04-15] MEDS ORDERED: MAGNESIUM 2GM/50ML STERILE WATER IVPB IVPB ONE (09:45)
[2021-04-15] MEDS ORDERED: MAGNESIUM SULF 50% (8.12 MEQ/2 ML-1 GM VIAL) ONE (09:58)
[2021-04-15] MEDS: THIAMINE HCL 200 MG/2 ML VIAL IVPB SCH (09:59)
[2021-04-15 10:36] LABS: ARTERIAL BLD GAS O2 SATURATION 93.2 % (95-98); ARTERIAL BLOOD GAS BASE EXCESS -8.8 mmol/L (-2-2)
[2021-04-15 10:41] LABS: ALLENS TEST POSITIVE; VENT MODE V-A/C
[2021-04-15 10:42] LABS: VENT RATE 16
[2021-04-15] MEDS: MULTIVIT INJ. ADULT COMBO WITH VIT K 1 COMBO 10 ML VIAL IV SCH (12:41)
[2021-04-15] MEDS ORDERED: VASOPRESSIN 20 UNITS/ML VIAL IV ONE (19:23)
[2021-04-15] MEDS: PROPOFOL 1,000,000 MCG/100 ML VIAL IVPUSH SCH (21:09)
[2021-04-15] MEDS: CHLORHEXIDINE GLUCONATE 4% CLEANSER FOR DECOLONIZATION TP SCH (21:10)
[2021-04-15] MEDS: FENTANYL NS IVPB 500 MCG/100 ML BAG IVPB SCH (21:10)
[2021-04-15] MEDS ORDERED: LACTULOSE 10 GM/15 ML BULK BOTTLE RC SCH (22:00)
[2021-04-16] MEDS ORDERED: PIPERACILLIN/TAZOBACTAM 2.25 GM VIAL IVPB ONE ×3 (01:06→17:26)
[2021-04-16] MEDS ORDERED: DEXTROSE 5%-WATER - 50 ML IVPB ONE ×3 (01:06→17:26)
[2021-04-16] MEDS: PIPERACILLIN/TAZOB 2.25 GM 2.25 GM in DEXTROSE 5%-WATER - 50 ML IVPB SCH ×3 (01:07→17:40)
[2021-04-16] MEDS: SODIUM BICARBONATE 8.4% - 150 MEQ in DEXTROSE 5%-WATER - 1,000 ML IV SCH ×2 (05:57→17:20)
[2021-04-16] MEDS ORDERED: LACTULOSE 20 GM/30 ML UDC (FOR RECTAL USE ONLY) PR SCH (06:03)
[2021-04-16] MEDS: VASOPRESSIN 40 UNITS in SODIUM CHLORIDE 40 UNITS/100 ML INFUS.BAG IVPB SCH (06:48)
[2021-04-16 07:00] LABS: HEMATOCRIT 23.5 % (35.4-49); HEMOGLOBIN 8.2 GM/dL (11.7-16.9); MEAN CELL VOLUME 116.3 fl (80-96); MEAN PLT VOLUME 7.7 fl (7.5-11.1); PLATELET COUNT 79 10^3/uL (134-434); RBC 2.02 M/mm3 (4.00-5.60); RDW 14.2 % (11.9-15.9); WHITE BLOOD COUNT 8.1 K/mm3 (4.0-10.0)
[2021-04-16 07:02] LABS: MCH 40.7 pg (25.7-33.7)
[2021-04-16 07:25] LABS: CHLORIDE 85 mmol/L (98-107); SODIUM 127 mmol/L (136-145)
[2021-04-16 07:28] LABS: ALBUMIN 1.6 g/dl (3.4-5.0); ANION GAP 18 MMOL/L (8-16); BLOOD UREA NITROGEN 21.9 mg/dL (7-18); CO2 24 mmol/L (21-32); GLUCOSE,RANDOM 232 mg/dL (74-106); MAGNESIUM 1.5 mg/dL (1.8-2.4)
[2021-04-16 07:31] LABS: CREATININE 3.9 mg/dL (0.55-1.3); PHOSPHOROUS 4.1 mg/dL (2.5-4.9); SGOT/AST 965 U/L (15-37); SGPT/ALT 225 U/L (13-61)
[2021-04-16 07:32] LABS: TOT PROT 5.1 g/dl (6.4-8.2)
[2021-04-16 07:33] LABS: BILIRUBIN,TOTAL 9.6 mg/dL (0.2-1)
[2021-04-16 07:34] LABS: ALK PHOS 248 U/L (45-117)
[2021-04-16 08:02] LABS: CALCIUM 6.7 mg/dL (8.5-10.1)
[2021-04-16] MEDS: MUPIROCIN 2% TOPICAL OINTMENT FOR DECOLONIZATION NS SCH ×2 (09:11→21:49)
[2021-04-16] MEDS: THIAMINE HCL 200 MG/2 ML VIAL IVPB SCH (09:11)
[2021-04-16] MEDS: FOLIC ACID 5 MG/1 ML SQ SCH (13:17)
[2021-04-16] MEDS: PROPOFOL 1,000,000 MCG/100 ML VIAL IVPUSH SCH ×2 (15:00→21:47)
[2021-04-16] MEDS ORDERED: MAGNESIUM 2GM/50ML STERILE WATER IVPB IVPB ONE (15:30)
[2021-04-16] MEDS: NOREPINEPHRINE BITARTRATE 16,000 MCG in DEXTROSE 5%-WATER - 16,000 MCG/500 ML INFUS.BAG IVPB SCH ×2 (15:48→21:45)
[2021-04-16] MEDS: MULTIVIT INJ. ADULT COMBO WITH VIT K 1 COMBO 10 ML VIAL IV SCH (16:53)
[2021-04-16] MEDS: CHLORHEXIDINE GLUCONATE 4% CLEANSER FOR DECOLONIZATION TP SCH (21:49)
[2021-04-16] MEDS: FENTANYL NS IVPB 500 MCG/100 ML BAG IVPB SCH (21:49)
[2021-04-16 23:07] LABS: CARCINOEMBRYONIC ANTIGEN 13.1 ng/mL (0.0-4.7)
[2021-04-17] MEDS: PIPERACILLIN/TAZOB 2.25 GM 2.25 GM in DEXTROSE 5%-WATER - 50 ML IVPB SCH ×3 (02:57→18:15)
[2021-04-17] MEDS: SODIUM BICARBONATE 8.4% - 150 MEQ in DEXTROSE 5%-WATER - 1,000 ML IV SCH ×2 (06:57→19:38)
[2021-04-17] MEDS: VASOPRESSIN 40 UNITS in SODIUM CHLORIDE 40 UNITS/100 ML INFUS.BAG IVPB SCH (06:58)
[2021-04-17 07:13] LABS: BASO % 0.4 % (0-2.0); EOS % 0.8 % (0-4.5); HEMATOCRIT 26.7 % (35.4-49); HEMOGLOBIN 9.2 GM/dL (11.7-16.9); LYMPH % 5.5 % (8-40); MCHC 34.6 g/dl (32.0-35.9); MEAN CELL VOLUME 115.8 fl (80-96); MEAN PLT VOLUME 7.7 fl (7.5-11.1); NEUT % 88.3 % (42.8-82.8); PLATELET COUNT 59 10^3/uL (134-434); RBC 2.31 M/mm3 (4.00-5.60); RDW 14.6 % (11.9-15.9); WHITE BLOOD COUNT 8.6 K/mm3 (4.0-10.0)
[2021-04-17 07:14] LABS: MCH 40.1 pg (25.7-33.7)
[2021-04-17 07:25] LABS: PROTHROMBIN TIME (PATIENT) 63.1 SEC (9.7-13.0)
[2021-04-17 07:30] LABS: CHLORIDE 84 mmol/L (98-107); SODIUM 127 mmol/L (136-145)
[2021-04-17 07:33] LABS: ALBUMIN 1.6 g/dl (3.4-5.0); ANION GAP 17 MMOL/L (8-16); BLOOD UREA NITROGEN 25.3 mg/dL (7-18); CO2 26 mmol/L (21-32); GLUCOSE,RANDOM 208 mg/dL (74-106); MAGNESIUM 1.9 mg/dL (1.8-2.4)
[2021-04-17 07:36] LABS: BILIRUBIN,DIRECT 8.3 mg/dL (0.0-0.2); CREATININE 4.2 mg/dL (0.55-1.3); INR 5.39 (0.83-1.09); PHOSPHOROUS 4.8 mg/dL (2.5-4.9); SGOT/AST 687 U/L (15-37); SGPT/ALT 227 U/L (13-61)
[2021-04-17 07:38] LABS: BILIRUBIN,TOTAL 10.1 mg/dL (0.2-1)
[2021-04-17 07:39] LABS: ALK PHOS 259 U/L (45-117)
[2021-04-17 07:40] LABS: CALCIUM 6.8 mg/dL (8.5-10.1)
[2021-04-17 09:42] LABS: CHLORIDE 83 mmol/L (98-107); SODIUM 126 mmol/L (136-145)
[2021-04-17 09:45] LABS: ALBUMIN 1.6 g/dl (3.4-5.0); ANION GAP 17 MMOL/L (8-16); BLOOD UREA NITROGEN 26.4 mg/dL (7-18); CO2 26 mmol/L (21-32); GLUCOSE,RANDOM 205 mg/dL (74-106)
[2021-04-17 09:48] LABS: CREATININE 4.2 mg/dL (0.55-1.3); SGOT/AST 671 U/L (15-37); SGPT/ALT 232 U/L (13-61)
[2021-04-17 09:49] LABS: BILIRUBIN,TOTAL 9.8 mg/dL (0.2-1); TOT PROT 5.1 g/dl (6.4-8.2)
[2021-04-17] MEDS ORDERED: DEXTROSE 5%-WATER - 50 ML IVPB ONE (09:49)
[2021-04-17] MEDS ORDERED: PIPERACILLIN/TAZOBACTAM 2.25 GM VIAL IVPB ONE (09:49)
[2021-04-17 09:51] LABS: ALK PHOS 256 U/L (45-117); CALCIUM 6.6 mg/dL (8.5-10.1)
[2021-04-17] MEDS: THIAMINE HCL 200 MG/2 ML VIAL IVPB SCH (09:52)
[2021-04-17] MEDS: MUPIROCIN 2% TOPICAL OINTMENT FOR DECOLONIZATION NS SCH ×2 (09:52→22:32)
[2021-04-17 11:51] LABS: ANISOCYTOSIS 2+; MACROCYTOSIS 2+; PLATELET ESTIMATE DECREASED
[2021-04-17] MEDS ORDERED: KCL 10 MEQ IVPB 10 MEQ/100 ML INFUS.BAG IVPB SCH (12:30)
[2021-04-17] MEDS ORDERED: SODIUM CHLORIDE 500 ML IV STA (12:31)
[2021-04-17] MEDS ORDERED: MAGNESIUM SULF 50% (8.12 MEQ/2 ML-1 GM VIAL) IVPB ONE (12:33)
[2021-04-17] MEDS: PHYTONADIONE 10 MG/1 ML AMP IVPB SCH (19:52)
[2021-04-17] MEDS: FENTANYL NS IVPB 500 MCG/100 ML BAG IVPB SCH ×2 (19:52→21:38)
[2021-04-17] MEDS: CHLORHEXIDINE GLUCONATE 4% CLEANSER FOR DECOLONIZATION TP SCH (22:32)
[2021-04-18] MEDS ORDERED: PIPERACILLIN/TAZOBACTAM 2.25 GM VIAL IVPB ONE ×3 (01:58→17:54)
[2021-04-18] MEDS ORDERED: DEXTROSE 5%-WATER - 50 ML IVPB ONE ×3 (01:58→17:54)
[2021-04-18] MEDS: PIPERACILLIN/TAZOB 2.25 GM 2.25 GM in DEXTROSE 5%-WATER - 50 ML IVPB SCH ×3 (02:03→17:55)
[2021-04-18 07:13] LABS: HEMATOCRIT 26.4 % (35.4-49); MCH 39.2 pg (25.7-33.7); MCHC 33.9 g/dl (32.0-35.9); MEAN CELL VOLUME 115.7 fl (80-96); MEAN PLT VOLUME 8.2 fl (7.5-11.1); PLATELET COUNT 47 10^3/uL (134-434); RBC 2.28 M/mm3 (4.00-5.60); RDW 14.4 % (11.9-15.9); WHITE BLOOD COUNT 9.2 K/mm3 (4.0-10.0)
[2021-04-18 07:20] LABS: CHLORIDE 84 mmol/L (98-107); SODIUM 125 mmol/L (136-145)
[2021-04-18 07:22] LABS: PROTHROMBIN TIME (PATIENT) 51.2 SEC (9.7-13.0)
[2021-04-18 07:23] LABS: ALBUMIN 1.4 g/dl (3.4-5.0); ANION GAP 17 MMOL/L (8-16); BLOOD UREA NITROGEN 28.7 mg/dL (7-18); CO2 24 mmol/L (21-32); GLUCOSE,RANDOM 166 mg/dL (74-106)
[2021-04-18 07:26] LABS: CREATININE 4.6 mg/dL (0.55-1.3); SGOT/AST 432 U/L (15-37); SGPT/ALT 188 U/L (13-61)
[2021-04-18 07:27] LABS: BILIRUBIN,TOTAL 9.8 mg/dL (0.2-1); TOT PROT 4.9 g/dl (6.4-8.2)
[2021-04-18 07:29] LABS: ALK PHOS 247 U/L (45-117)
[2021-04-18 07:51] LABS: CALCIUM 6.7 mg/dL (8.5-10.1)
[2021-04-18 07:54] LABS: INR 4.39 (0.83-1.09)
[2021-04-18] MEDS: PHYTONADIONE 10 MG/1 ML AMP IVPB SCH (10:06)
[2021-04-18] MEDS: THIAMINE HCL 200 MG/2 ML VIAL IVPB SCH (10:06)
[2021-04-18] MEDS: MUPIROCIN 2% TOPICAL OINTMENT FOR DECOLONIZATION NS SCH (10:07)
[2021-04-18] MEDS: FENTANYL NS IVPB 500 MCG/100 ML BAG IVPB SCH (21:41)
[2021-04-18] MEDS: CHLORHEXIDINE GLUCONATE 4% CLEANSER FOR DECOLONIZATION TP SCH (21:41)
[2021-04-19] MEDS ORDERED: PIPERACILLIN/TAZOBACTAM 2.25 GM VIAL IVPB ONE ×3 (02:33→17:53)
[2021-04-19] MEDS ORDERED: DEXTROSE 5%-WATER - 50 ML IVPB ONE ×3 (02:34→17:53)
[2021-04-19] MEDS: PIPERACILLIN/TAZOB 2.25 GM 2.25 GM in DEXTROSE 5%-WATER - 50 ML IVPB SCH ×3 (02:44→18:23)
[2021-04-19] MEDS: PROPOFOL 1,000,000 MCG/100 ML VIAL IVPUSH SCH ×2 (06:00→21:14)
[2021-04-19] MEDS: VASOPRESSIN 40 UNITS in SODIUM CHLORIDE 40 UNITS/100 ML INFUS.BAG IVPB SCH ×2 (07:12→21:15)
[2021-04-19 07:26] LABS: HEMATOCRIT 26.1 % (35.4-49); MCH 39.9 pg (25.7-33.7); MCHC 34.7 g/dl (32.0-35.9); MEAN CELL VOLUME 114.8 fl (80-96); MEAN PLT VOLUME 8.6 fl (7.5-11.1); RBC 2.27 M/mm3 (4.00-5.60); RDW 14.1 % (11.9-15.9); WHITE BLOOD COUNT 8.2 K/mm3 (4.0-10.0)
[2021-04-19 07:31] LABS: PLATELET COUNT 30 10^3/uL (134-434)
[2021-04-19 07:36] LABS: PROTHROMBIN TIME (PATIENT) 48.6 SEC (9.7-13.0)
[2021-04-19 07:48] LABS: CHLORIDE 83 mmol/L (98-107); SODIUM 123 mmol/L (136-145)
[2021-04-19 07:50] LABS: ALBUMIN 1.4 g/dl (3.4-5.0); ANION GAP 16 MMOL/L (8-16); CO2 24 mmol/L (21-32); GLUCOSE,RANDOM 169 mg/dL (74-106); MAGNESIUM 2.1 mg/dL (1.8-2.4)
[2021-04-19 07:53] LABS: CREATININE 4.9 mg/dL (0.55-1.3); PHOSPHOROUS 5.8 mg/dL (2.5-4.9); SGOT/AST 261 U/L (15-37); SGPT/ALT 146 U/L (13-61)
[2021-04-19 07:54] LABS: BILIRUBIN,TOTAL 10.4 mg/dL (0.2-1); TOT PROT 4.8 g/dl (6.4-8.2)
[2021-04-19 07:56] LABS: ALK PHOS 235 U/L (45-117)
[2021-04-19] MEDS: NOREPINEPHRINE BITARTRATE 16,000 MCG in DEXTROSE 5%-WATER - 16,000 MCG/500 ML INFUS.BAG IVPB SCH ×2 (08:00→21:14)
[2021-04-19 08:13] LABS: CALCIUM 6.8 mg/dL (8.5-10.1)
[2021-04-19 08:27] LABS: INR 4.17 (0.83-1.09)
[2021-04-19] MEDS ORDERED: PHYTONADIONE 10 MG/1 ML AMP IVPB SCH (08:28)
[2021-04-19] MEDS: THIAMINE HCL 200 MG/2 ML VIAL IVPB SCH (09:43)
[2021-04-19] MEDS: FENTANYL NS IVPB 500 MCG/100 ML BAG IVPB SCH ×2 (18:23→21:15)
[2021-04-19] MEDS: CHLORHEXIDINE GLUCONATE 4% CLEANSER FOR DECOLONIZATION TP SCH (21:15)
[2021-04-20] MEDS ORDERED: DEXTROSE 5%-WATER - 50 ML IVPB ONE ×3 (01:18→18:00)
[2021-04-20] MEDS ORDERED: PIPERACILLIN/TAZOBACTAM 2.25 GM VIAL IVPB ONE ×3 (01:18→18:00)
[2021-04-20] MEDS: PIPERACILLIN/TAZOB 2.25 GM 2.25 GM in DEXTROSE 5%-WATER - 50 ML IVPB SCH ×3 (01:20→18:10)
[2021-04-20] MEDS: FENTANYL NS IVPB 500 MCG/100 ML BAG IVPB SCH ×2 (05:00→22:57)
[2021-04-20] MEDS: PROPOFOL 1,000,000 MCG/100 ML VIAL IVPUSH SCH (06:16)
[2021-04-20 07:44] LABS: HEMATOCRIT 27.1 % (35.4-49); HEMOGLOBIN 9.3 GM/dL (11.7-16.9); MCH 39.9 pg (25.7-33.7); MCHC 34.3 g/dl (32.0-35.9); MEAN CELL VOLUME 116.3 fl (80-96); RBC 2.33 M/mm3 (4.00-5.60); RDW 14.7 % (11.9-15.9); WHITE BLOOD COUNT 9.9 K/mm3 (4.0-10.0)
[2021-04-20 07:51] LABS: PLATELET COUNT 26 10^3/uL (134-434)
[2021-04-20 07:52] LABS: PROTHROMBIN TIME (PATIENT) 55.8 SEC (9.7-13.0)
[2021-04-20 08:02] LABS: ALBUMIN 1.3 g/dl (3.4-5.0)
[2021-04-20 08:03] LABS: BLOOD UREA NITROGEN 40.3 mg/dL (7-18); MAGNESIUM 2.4 mg/dL (1.8-2.4)
[2021-04-20 08:05] LABS: CREATININE 5.3 mg/dL (0.55-1.3)
[2021-04-20 08:07] LABS: TOT PROT 4.8 g/dl (6.4-8.2)
[2021-04-20 08:31] LABS: INR 4.78 (0.83-1.09)
[2021-04-20] MEDS: THIAMINE HCL 200 MG/2 ML VIAL IVPB SCH (10:44)
[2021-04-20] MEDS: VASOPRESSIN 40 UNITS in SODIUM CHLORIDE 40 UNITS/100 ML INFUS.BAG IVPB SCH ×2 (14:47→22:59)
[2021-04-20] MEDS: NOREPINEPHRINE BITARTRATE 16,000 MCG in DEXTROSE 5%-WATER - 16,000 MCG/500 ML INFUS.BAG IVPB SCH (18:19)
[2021-04-20] MEDS: CHLORHEXIDINE GLUCONATE 4% CLEANSER FOR DECOLONIZATION TP SCH (22:56)
[2021-04-21] MEDS ORDERED: PIPERACILLIN/TAZOBACTAM 2.25 GM VIAL IVPB ONE (01:19)
[2021-04-21] MEDS ORDERED: DEXTROSE 5%-WATER - 50 ML IVPB ONE (01:19)
[2021-04-21] MEDS: PIPERACILLIN/TAZOB 2.25 GM 2.25 GM in DEXTROSE 5%-WATER - 50 ML IVPB SCH ×2 (01:46→11:13)
[2021-04-21] MEDS: VASOPRESSIN 40 UNITS in SODIUM CHLORIDE 40 UNITS/100 ML INFUS.BAG IVPB SCH (06:59)
[2021-04-21 07:10] VITALS: TEMP 97.6
[2021-04-21] MEDS ORDERED: PHENYLEPHRINE NS PREMIX 50,000 MCG/500 ML BAG CVP SCH (08:15)
[2021-04-21] MEDS ORDERED: MORPHINE SULFATE/0.9% NACL/PF 100 MG/100 ML BAG IVPB SCH (09:00)
[2021-04-21] MEDS ORDERED: LORazepam 2 MG/ML SDV VIAL IVPUSH SCH (09:15)
[2021-04-21] MEDS: THIAMINE HCL 200 MG/2 ML VIAL IVPB SCH (11:12)
[2021-04-21 12:18] VITALS: BP 54/23; PULSE 73
== END 2021-04-21 17:46 | disposition expired | DRG 279 ==
LOC: JER 08:07 → JERBED 14:45 → JICU 19:26
PROVIDERS: ADMIT Internal Medicine Pulmonary Disease; ATTEND Internal Medicine Pulmonary Disease
PROC: 0BH17EZ Insertion of Endotracheal Airway into Trachea, Via Natural or Artificial Opening (ICD-10-PCS; principal; 2021-04-13)
PROC: 5A1955Z Respiratory Ventilation, Greater than 96 Consecutive Hours (ICD-10-PCS; 2021-04-13)
PROC: 05HM33Z Insertion of Infusion Device into Right Internal Jugular Vein, Percutaneous Approach (ICD-10-PCS; 2021-04-13)
PROC: B543ZZA Ultrasonography of Right Jugular Veins, Guidance (ICD-10-PCS; 2021-04-13)
DX: K72.00 Acute and subacute hepatic failure without coma (principal); J18.9 Pneumonia, unspecified organism; J96.00 Acute respiratory failure, unspecified whether with hypoxia or hypercapnia; N17.0 Acute kidney failure with tubular necrosis; J44.9 Chronic obstructive pulmonary disease, unspecified; K85.90 Acute pancreatitis without necrosis or infection, unspecified; N17.9 Acute kidney failure, unspecified; K76.7 Hepatorenal syndrome; K72.90 Hepatic failure, unspecified without coma; E87.5 Hyperkalemia; K86.0 Alcohol-induced chronic pancreatitis; E87.1 Hypo-osmolality and hyponatremia; E11.649 Type 2 diabetes mellitus with hypoglycemia without coma; D69.6 Thrombocytopenia, unspecified; E87.2 Acidosis; R64 Cachexia; I10 Essential (primary) hypertension; F10.220 Alcohol dependence with intoxication, uncomplicated; R74.01 Elevation of levels of liver transaminase levels; Z68.1 Body mass index [BMI] 19.9 or less, adult; K70.31 Alcoholic cirrhosis of liver with ascites; K76.9 Liver disease, unspecified; J45.909 Unspecified asthma, uncomplicated; D68.9 Coagulation defect, unspecified; R79.89 Other specified abnormal findings of blood chemistry; E87.6 Hypokalemia; I95.9 Hypotension, unspecified; A41.89 Other specified sepsis; R65.21 Severe sepsis with septic shock; Z66 Do not resuscitate; I46.9 Cardiac arrest, cause unspecified
CPT/HCPCS: 31500; 36415; 36430; 36600; 70450-TC; 71045-TC-FY; 74177-TC; 76705-TC; 80048; 80053; 80076; 80307; 81003; 81241; 82010; 82105; 82140; 82248; 82272; 82378; 82436; 82550; 82553; 82570; 82607; 82728; 82746; 82803; 82962; 83540; 83550; 83605; 83615; 83690; 83735; 83880; 84100; 84133; 84300; 84484; 85025; 85027; 85240; 85260; 85291; 85379; 85384; 85610; 85730; 86301; 86850; 86900; 86901; 87040; 87070; 87075; 87086; 87205; 93005; 93010; 93306-TC; 94002; 99291; C9803; P9012; P9017; P9034; Q9967; U0003; U0005